=== PATIENT | female | born 1940 ===

== ENCOUNTER 2021-02-10 07:52 | Outpatient (REF) | payer OTHER, SELFPAY ==
[2021-02-10 10:46] LABS: MANUAL DIFF FLAG NO
[2021-02-10 11:03] LABS: Basophils Percent Auto 0.4 % (0-2); Eosinophils Absolute Auto 0.2 X10*3/uL (0.0-0.4); Eosinophils Percent Auto 2.8 % (0-4); Hematocrit 40.6 % (37-47); Hemoglobin 13.4 g/dl (12.0-16.0); Imm Gran Abs Auto 0.02 X10*3/uL (0.00-0.03); Imm Gran Pct Auto 0.4 % (0.0-0.4); Lymphocytes Absolute Auto 1.2 X10*3/uL (1.2-4.9); Lymphocytes Percent Auto 22.4 % (20-40); Mean Corpuscular Hemoglobin 31.5 pg (27.0-33.0); Mean Corpuscular Volume 95.3 fL (80-98); Mean Platelet Volume 10.7 fL (9.4-12.3); Monocytes Absolute Auto 0.5 X10*3/uL (0.1-1.2); Neutrophils Absolute Auto 3.5 X10*3/uL (2.0-8.3); Platelet Count 194 X10*3/uL (160-400); Red Blood Count 4.26 X10*6/uL (4.20-5.50); Red Cell Distribution Width 12.3 % (11.0-16.0); White Blood Count 5.3 X10*3/uL (4.8-10.8)
[2021-02-10 11:19] LABS: Digoxin 1.1 ng/mL (0.8-2.0)
[2021-02-10 11:23] LABS: Alanine Aminotransferase 17 U/L (0-31); Albumin Level 4.5 g/dL (3.5-5.0); Alkaline Phosphatase 65 U/L (39-117); Anion Gap 12 (12-20); Aspartate Amino Transferase 18 U/L (5-31); Bilirubin Total 0.4 mg/dL (0.0-1.0); Blood Urea Nitrogen 15 mg/dL (9-16); Calcium 8.9 mg/dL (8.4-10.2); Carbon Dioxide 30 mmol/L (22-29); Chloride 102 mmol/L (96-108); Cholesterol 183 mg/dL; Estimated Glomerular Filt Rate 53; Glucose Fasting 91 mg/dL (60-99); HDL Cholesterol 55 mg/dL; LDL Cholesterol Calculated 105 mg/dl; Potassium 4.5 mmol/L (3.3-5.1); Sodium 139 mmol/L (135-145); Total Protein 7.2 g/dL (6.5-8.0); Triglycerides 118 mg/dL
[2021-02-10 11:24] LABS: TSH reflex Free T4 3.36 uIU/mL (0.32-4.0)
== END 2021-02-10 07:53 | disposition home or self-care (01) ==
LOC: HO.WFDLDS 07:52
PROVIDERS: Visit Provider Family Medicine
DX: Z00.00 Encounter for general adult medical examination without abnormal findings (principal); I47.1 Supraventricular tachycardia
CPT/HCPCS: 36415; 80053; 80061; 80162; 84443; 85025

== ENCOUNTER 2021-06-30 08:50 | Outpatient (REF) | payer OTHER, SELFPAY ==
--- NOTE | ~2021-06-30 | US_ITS ---
EXAMINATION: US ABDOMEN LIMITED CLINICAL INFORMATION: Right upper quadrant pain. COMPARISON: None TECHNIQUE: Real-time imaging of the right upper quadrant abdominal viscera. FINDINGS: PANCREAS: Normal. LIVER: The liver is normal in size. The liver contour is normal. No focal hepatic lesion. There is no intrahepatic biliary duct dilatation seen. GALLBLADDER: Normal. The gallbladder is physiologically distended without evidence of stones, sludge, polyps, wall thickening or pericholecystic fluid. COMMON BILE DUCT: Normal in caliber measuring 0.41 cm in diameter. RIGHT KIDNEY: Normal. No hydronephrosis. No renal calculi or focal parenchymal lesions. The kidney measures 9.6 cm in maximum dimension. FREE FLUID: None. US/US abdomen limited IMPRESSION: No significant right upper quadrant abnormality appreciated.
== END 2021-06-30 08:51 | disposition home or self-care (01) ==
LOC: HO.US 08:50
PROVIDERS: PCP Family Medicine; Visit Provider Family Medicine
DX: R10.11 Right upper quadrant pain (principal)
CPT/HCPCS: 76705

== ENCOUNTER 2022-03-01 07:55 | Outpatient (REF) | payer OTHER, SELFPAY ==
[2022-03-01 11:26] LABS: MANUAL DIFF FLAG NO
[2022-03-01 11:36] LABS: Basophils Percent Auto 0.2 % (0-2); Eosinophils Absolute Auto 0.2 X10*3/uL (0.0-0.4); Eosinophils Percent Auto 3.4 % (0-4); Hematocrit 42.2 % (37.0-47.0); Hemoglobin 13.9 g/dl (12.0-16.0); Imm Gran Abs Auto 0.03 X10*3/uL (0.00-0.03); Imm Gran Pct Auto 0.6 % (0.0-0.4); Lymphocytes Absolute Auto 1.4 X10*3/uL (1.2-4.9); Lymphocytes Percent Auto 25.3 % (20-40); Mean Corpuscular HGB Conc 32.9 g/dl (31.0-35.0); Mean Corpuscular Hemoglobin 31.1 pg (27.0-33.0); Mean Corpuscular Volume 94.4 fL (80.0-98.0); Mean Platelet Volume 10.5 fL (9.4-12.3); Monocytes Absolute Auto 0.5 X10*3/uL (0.1-1.2); Monocytes Percent Auto 9.7 % (2-11); Neutrophils Absolute Auto 3.3 x10*3/uL (2.0-8.3); Neutrophils Percent Auto 60.8 % (45-73); Platelet Count 202 X10*3/uL (160-400); Red Blood Count 4.47 X10*6/uL (4.20-5.50); Red Cell Distribution Width 12.2 % (11.0-16.0); White Blood Count 5.4 X10*3/uL (4.8-10.8)
[2022-03-01 12:05] LABS: Digoxin 1.6 ng/mL (0.8-2.0)
[2022-03-01 12:28] LABS: Alanine Aminotransferase 17 U/L (0-31); Albumin Level 4.4 g/dL (3.5-5.0); Alkaline Phosphatase 70 U/L (39-117); Anion Gap 11 (12-20); Aspartate Amino Transferase 20 U/L (5-31); Bilirubin Total 0.7 mg/dL (0.0-1.0); Blood Urea Nitrogen 16 mg/dL (9-16); Calcium 9.5 mg/dL (8.4-10.2); Carbon Dioxide 29 mmol/L (22-29); Chloride 104 mmol/L (96-108); Cholesterol 204 mg/dL; Estimated Glomerular Filt Rate 51; Glucose Fasting 94 mg/dL (60-99); HDL Cholesterol 50 mg/dL; LDL Cholesterol Calculated 132 mg/dl; Potassium 4.1 mmol/L (3.3-5.1); Sodium 140 mmol/L (135-145); Total Protein 7.3 g/dL (6.5-8.0); Triglycerides 114 mg/dL
[2022-03-01 12:30] LABS: TSH reflex Free T4 4.23 uIU/mL (0.32-4.0)
[2022-03-01 13:17] LABS: Free T4 (Free Thyroxine) 0.94 ng/dL (0.71-1.85)
[2022-03-01 14:54] LABS: Appearance Urine CLEAR; Color Urine YELLOW; Glucose Urine UA NEG (NEG); Leukocyte Esterase Urine 3+ (NEG); Nitrite Urine NEG (NEG); Specific Gravity - Urine 1.015 (1.005-1.025); Urine Blood TRACE (NEG); Urine Ketones NEG (NEG); Urine Protein NEG (NEG-TRACE)
[2022-03-01 15:07] LABS: Squamous Epithelial Cell Urine 2+ /LPF
[2022-03-01 15:08] LABS: Renal Epithelial Cells Urine 2+ /LPF
[2022-03-01 15:09] LABS: Bacteria Urine TRACE /LPF; RBC Urine 0-2 /HPF (0)
== END 2022-03-01 07:56 | disposition home or self-care (01) ==
LOC: HO.WFDLDS 07:55
PROVIDERS: Visit Provider Family Medicine
DX: Z00.00 Encounter for general adult medical examination without abnormal findings (principal); I47.1 Supraventricular tachycardia
CPT/HCPCS: 36415; 80053; 80061; 80162; 81001; 84439; 84443; 85025

== ENCOUNTER 2022-07-04 07:28 | Outpatient (REF) | payer OTHER, SELFPAY ==
[2022-07-04 10:43] LABS: Cholesterol 191 mg/dL; HDL Cholesterol 52 mg/dL; LDL Cholesterol Calculated 115 mg/dl; Triglycerides 120 mg/dL
[2022-07-04 10:58] LABS: Appearance Urine Clear; Color Urine Yellow; Glucose Urine UA Negative (Negative); Leukocyte Esterase Urine Large (3+) (Negative); Nitrite Urine Negative (Negative); PH 7.5 (5.0-8.0); Urine Blood Negative (Negative); Urine Ketones Negative (Negative); Urine Protein Negative (Neg-Trace)
[2022-07-04 11:06] LABS: Bacteria Urine None Seen (None Seen); Hyaline Casts Urine 0-2 /LPF (0-2); RBC Urine 0-2 /HPF (0-2); Squamous Epithelial Cell Urine 0-2 /HPF (0-2); UACC Culture Trigger YES
== END 2022-07-04 07:29 | disposition home or self-care (01) ==
LOC: HO.WFDLDS 07:28
PROVIDERS: Visit Provider Family Medicine
DX: R82.71 Bacteriuria (principal)
CPT/HCPCS: 36415; 80061; 81001; 81003; 87086

== ENCOUNTER 2022-07-19 | Outpatient (REF) | payer OTHER, SELFPAY ==
[2022-07-20 12:46] LABS: Appearance Urine Cloudy; Color Urine Yellow; Glucose Urine UA Negative (Negative); Leukocyte Esterase Urine Large (3+) (Negative); Nitrite Urine Negative (Negative); PH 5.5 (5.0-9.0); Urine Blood Trace (Negative); Urine Ketones Negative (Negative); Urine Protein Negative (Neg-Trace)
[2022-07-20 12:49] LABS: Bacteria Urine 1+ (None Seen); Hyaline Casts Urine 0-2 /LPF (0-2); RBC Urine 0-2 /HPF (0-2); UACC Culture Trigger YES; WBC Urine >50 /HPF (0-5)
== END 2022-07-19 00:01 | disposition home or self-care (01) ==
LOC: HO.LNP
PROVIDERS: Visit Provider Family Medicine
DX: R82.71 Bacteriuria (principal)
CPT/HCPCS: 81001; 81003; 87086

== ENCOUNTER 2022-08-15 12:42 | Outpatient (REF) | payer OTHER, SELFPAY ==
[2022-08-15 14:52] LABS: Alanine Aminotransferase 13 U/L (0-31); Albumin Level 4.5 g/dL (3.5-5.0); Alkaline Phosphatase 72 U/L (39-117); Anion Gap 13 (12-20); Aspartate Amino Transferase 19 U/L (5-31); Bilirubin Total 0.5 mg/dL (0.0-1.0); Blood Urea Nitrogen 17 mg/dL (9-16); Calcium 9.2 mg/dL (8.4-10.2); Carbon Dioxide 26 mmol/L (22-29); Chloride 103 mmol/L (96-108); Estimated Glomerular Filt Rate 52; Glucose Random 83 mg/dL (60-115); Potassium 4.4 mmol/L (3.3-5.1); Sodium 138 mmol/L (135-145); Total Protein 7.4 g/dL (6.5-8.0)
[2022-08-15 15:14] LABS: Free T4 (Free Thyroxine) 1.02 ng/dL (0.71-1.85); Thyroid Stimulating Hormone 3.02 uIU/mL (0.32-4.0)
[2022-08-16 16:17] LABS: Triiodothyronine T3 Total 132 ng/dL (76-181)
== END 2022-08-15 12:43 | disposition home or self-care (01) ==
LOC: HO.WFDLDS 12:42
PROVIDERS: Visit Provider Family Medicine
DX: E03.9 Hypothyroidism, unspecified (principal); I10 Essential (primary) hypertension; R79.89 Other specified abnormal findings of blood chemistry
CPT/HCPCS: 36415; 80053; 84439; 84443; 84480

== ENCOUNTER 2022-12-05 08:10 | Outpatient (REF) | payer SELFPAY ==
[2022-12-05 12:39] LABS: Alanine Aminotransferase 10 U/L (0-31); Albumin Level 4.3 g/dL (3.5-5.0); Alkaline Phosphatase 75 U/L (39-117); Anion Gap 13 (12-20); Aspartate Amino Transferase 18 U/L (5-31); Bilirubin Total 0.8 mg/dL (0.0-1.0); Blood Urea Nitrogen 17 mg/dL (9-16); Carbon Dioxide 26 mmol/L (22-29); Chloride 104 mmol/L (96-108); Cholesterol 189 mg/dL; Estimated Glomerular Filt Rate 46; Glucose Random 89 mg/dL (60-115); HDL Cholesterol 48 mg/dL; LDL Cholesterol Calculated 119 mg/dl; Potassium 3.9 mmol/L (3.3-5.1); Sodium 139 mmol/L (135-145); Triglycerides 114 mg/dL
== END 2022-12-05 08:11 | disposition home or self-care (01) ==
LOC: HO.WFDLDS 08:10
PROVIDERS: Visit Provider Surgery
DX: I65.29 Occlusion and stenosis of unspecified carotid artery (principal)
CPT/HCPCS: 36415; 80053; 80061

== ENCOUNTER 2023-07-19 08:20 | Outpatient (REF) | payer MEDICARE, SELFPAY ==
[2023-07-19 11:26] LABS: MANUAL DIFF FLAG NO
[2023-07-19 11:37] LABS: Basophils Percent Auto 0.5 % (0-2); Eosinophils Absolute Auto 0.2 X10*3/uL (0.0-0.4); Eosinophils Percent Auto 3.9 % (0-4); Hematocrit 38.8 % (37.0-47.0); Imm Gran Abs Auto 0.02 X10*3/uL (0.00-0.03); Imm Gran Pct Auto 0.4 % (0.0-0.4); Lymphocytes Absolute Auto 1.1 X10*3/uL (1.2-4.9); Lymphocytes Percent Auto 19.6 % (20-40); Mean Corpuscular HGB Conc 33.5 g/dl (31.0-35.0); Mean Corpuscular Hemoglobin 31.7 pg (27.0-33.0); Mean Corpuscular Volume 94.6 fL (80.0-98.0); Mean Platelet Volume 10.8 fL (9.4-12.3); Monocytes Absolute Auto 0.5 X10*3/uL (0.1-1.2); Monocytes Percent Auto 9.1 % (2-11); Neutrophils Absolute Auto 3.8 x10*3/uL (2.0-8.3); Neutrophils Percent Auto 66.5 % (45-73); Platelet Count 195 X10*3/uL (160-400); Red Cell Distribution Width 12.5 % (11.0-16.0); White Blood Count 5.7 X10*3/uL (4.8-10.8)
[2023-07-19 12:20] LABS: Alanine Aminotransferase 17 U/L (0-31); Albumin Level 4.4 g/dL (3.5-5.0); Alkaline Phosphatase 66 U/L (39-117); Anion Gap 11 (12-20); Aspartate Amino Transferase 20 U/L (5-31); Bilirubin Total 0.7 mg/dL (0.0-1.0); Blood Urea Nitrogen 19 mg/dL (9-16); Calcium 9.5 mg/dL (8.4-10.2); Carbon Dioxide 27 mmol/L (22-29); Chloride 106 mmol/L (96-108); Cholesterol 152 mg/dL (<200); Estimated Glomerular Filt Rate 44; Glucose Fasting 92 mg/dL (60-99); HDL Cholesterol 48 mg/dL (>40); LDL Cholesterol Calculated 84 mg/dL (<100); Potassium 4.1 mmol/L (3.3-5.1); Sodium 140 mmol/L (135-145); Total Protein 7.5 g/dL (6.5-8.0); Triglycerides 102 mg/dL (<150)
== END 2023-07-19 08:21 | disposition home or self-care (01) ==
LOC: HO.WFDLDS 08:20
PROVIDERS: Visit Provider Family Medicine
DX: Z00.00 Encounter for general adult medical examination without abnormal findings (principal); I10 Essential (primary) hypertension; Z86.73 Personal history of transient ischemic attack (TIA), and cerebral infarction without residual deficits
CPT/HCPCS: 36415; 80053; 80061; 85025

== ENCOUNTER 2023-07-24 13:57 | Outpatient (AMB) | payer MEDICARE, SELFPAY ==
--- NOTE | 2023-07-24 13:59 | MHC.PC.OV ---
Vital Signs 07/24/23 14:02 Height 5 ft 6 in Weight 114 lb BMI 18.4 BP 152/90 H Blood Pressure Location Lt brachial Position Sitting Respiration 14 Pulse 72 Pulse Source Pulse Oximeter Temp 98.8 F Temp Source Oral Pulse Oximetry (%) 99 Oxygen Delivery Method Room Air Intake Visit Reasons: cataract Dr. Marcelo/ 07-29-23 Intake Note: Patient is having cataract surgery on 07/29/23. 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 Accompanied by: Self / Same As Patient Allergies clindamycin [From Cleocin] Allergy (Verified 07/24/23 14:08) colitis hydromorphone [From Dilaudid] Allergy (Verified 07/24/23 14:08) apnea midazolam [From Versed] Allergy (Verified 07/24/23 14:08) rapid pulse Penicillins Allergy (Verified 07/24/23 14:08) Hives Sulfa (Sulfonamide Antibiotics) Allergy (Verified 07/24/23 14:08) rash NSAIDS (Non-Steroidal Anti-Inflamma Adverse Reaction (Verified 07/24/23 14:08) gi issues BACTRIM Adverse Reaction (Severe, Uncoded 02/21/23 09:59) Rash, ABD PAIN Tobacco use date assessed: 01/17/23 Fall risk assessment: No Falls in past year Last assessed Fall Risk: 07/24/23 Dental Screening Dental Screen Date: 07/24/23 Did you have a dental visit in the last 12 months?: No Did you have a dental problem in the last 6 months where you did not have access to dental care?: No Was dental information given to patient?: Patient has dentist HPI cataract Dr. Marcelo/ 07-29-23 HPI Details Patient presents for preoperative clearance prior to Cataract surgery Procedure: Cataract Surgery Date: 07/29/23 Surgeon: Dr. Marcelo Anesthesia: Local Cardiac Hx: SVT, TIA. Dyspnea on Exertion Pulmonary Hx: Left upper lobe resection. Prior Surgical complications: None Prior Anesthesia Complications: None Coag Issues: On aspirin. Otherwise none Functional [place]: Dyspnea on exertion when going up the stairs. [facility] Surgical History (Updated 08/16/21 @ 10:48 by [employer]) History of hip replacement (~2009) Social History (Updated 08/16/21 @ 10:49 by Rollerscoot) Housing: Condominium Patient Tobacco Use Status: Never used Tobacco e-Cigarette/Vaping Use: Never Used Second Hand Smoke Exposure: No service: No Current occupational status: retired Current occupational exposures/hazards: No Cognitive needs: No Hearing needs: No Vision needs: No Questionnaire Thrive Questionnaire Date Thrive assessed: 08/16/21 MARIANN-7 AMB Questionnaire MARIANN-7 Date MARIANN - 7 assessed: 07/19/22 Source: Developed by Drs. Db Eric, Winifred Cardoso, Allan Talamantes and colleagues, with an educational astrid from [employer]. Review of Systems Const Denies chills, Denies fatigue, Denies fever(s), Denies headache(s) and Denies weakness ENT Denies dizziness and Denies headache(s) Card Denies chest pain, Denies lightheadedness, Denies dyspnea and Denies other (Palpitations) Resp Denies cough, Denies dyspnea, Denies wheezing and Denies other ( shortness of breath) Musc Denies numbness and Denies tingling Neuro Denies dizziness, Denies headache(s), Denies numbness, Denies tingling, Denies paresthesias and Denies weakness Psych Denies anxiety and Denies depression Endo Denies fatigue Aller/Immun Denies wheezing Physical exam (Primary Care) Vital Signs: Last Vital Signs Temp 98.8 F 07/24/23 14:02 Pulse 72 07/24/23 14:02 Resp 14 07/24/23 14:02 BP 152/90 H 07/24/23 14:02 Pulse Ox 99 07/24/23 14:02 Oxygen Delivery Method Room Air 07/24/23 14:02 BMI result Body Mass Index 18.4 Tobacco/Smoking Status: Tobacco use Status Tobacco use date assessed 01/17/23 07/24/23 14:09 Patient Tobacco Use Status Never used Tobacco 07/24/23 14:09 e-Cigarette/Vaping Use Never Used 07/24/23 14:09 Thrive Assessment: Date of Thrive Assessment Date Thrive assessed 08/16/21 07/24/23 14:09 Const General: no acute distress and well developed Nutritional Appearance: well nourished Orientation/consciousness: patient oriented x3 HENMT Head: Yes normocephalic and Yes atraumatic Eyes General: appearance normal, both eyes and all related structures Pupils: Equal, round and reactive pupils present EOM: EOMs intact bilaterally Resp Effort & Inspection: normal respiratory effort Auscultation: clear to auscultation bilaterally Cardio Rate: regular rate Rhythm: regular rhythm Heart sounds: S1 normal heart sound present, S2 normal heart sound present, no gallops, no murmurs and no rubs Bruits: carotid bruit (Faint L carotid bruit) Neuro General: patient oriented x3 and gait normal Cranial nerves: Yes Equal, round and reactive pupils present Psych Affect: normal affect Assessment and Plan Assessment & Plan (1) Preop cardiovascular exam: Code(s): Z01.810 - Encounter for preprocedural cardiovascular examination Plan: 82-year-old female presents for preoperative clearance prior to cataract surgery History of SVT and on digoxin. History of hypertension. Blood pressure not fully controlled today. No diagnosis of coronary artery disease. She does have a history of TIA however. She also notes some shortness of breath with maximal exertion such as going up a flight of stairs. History of left upper lobe of lung resection. Now stable. No prior surgical or anesthesia complications and no coagulopathies however she is on aspirin. Moderately poor functional reserve and having some shortness of breath with maximal exertion. Currently unable to clear patient due to hypertension which is not fully controlled. Will add amlodipine. She will return in 2 days to follow-up blood pressure. (2) Essential hypertension: Code(s): I10 - Essential (primary) hypertension Plan: Poorly controlled blood pressure in office. Patient notes that her blood pressures are better controlled at home but they seem to fluctuate to significantly elevated ranges. Had used metoprolol but this was causing significantly low heart rates. She cannot take losartan due to a rash. Did not tolerate hydrochlorothiazide. Will try amlodipine Orders: Orders AMB EKG-In Office Today I10 - Essential (primary) hypertension, Z01.810 - Encounter for preprocedural cardiovascular examination Medications: New lisinopril 20 mg PO DAILY 30 days 30 tabs 2RF amlodipine 5 mg PO DAILY 30 tabs 2RF 30 days Coding Level of Care Code Est Pt Level 3 (73829) Diagnoses Preop cardiovascular exam Z01.810 Essential hypertension I10
[2023-07-24 14:02] VITALS: BP 152/90; PULSE 72; RESP 14; TEMP 37.1; O2SAT 99; BMI 18.4
== END 2023-07-24 14:59 | disposition home or self-care (01) ==
PROVIDERS: PCP Family Medicine; Visit Provider Family Medicine
DX: Z01.810 Encounter for preprocedural cardiovascular examination (principal); I10 Essential (primary) hypertension
CPT/HCPCS: 99213

== ENCOUNTER 2023-07-26 11:09 | Outpatient (AMB) | payer MEDICARE, SELFPAY ==
--- NOTE | 2023-07-26 11:20 | MHC.PC.OV ---
Vital Signs 07/26/23 11:21 Height 5 ft 6 in Weight 114 lb BMI 18.4 BP 128/80 Blood Pressure Location Lt brachial Position Sitting Pulse 65 Pulse Source Pulse Oximeter Pulse Oximetry (%) 98 Oxygen Delivery Method Room Air Intake Visit Reasons: PreOp Cataracts Intake Note: Patient is here for Preop and follow up on hypertension. Allergies clindamycin [From Cleocin] Allergy (Verified 07/26/23 11:25) colitis hydromorphone [From Dilaudid] Allergy (Verified 07/26/23 11:25) apnea midazolam [From Versed] Allergy (Verified 07/26/23 11:25) rapid pulse Penicillins Allergy (Verified 07/26/23 11:25) Hives Sulfa (Sulfonamide Antibiotics) Allergy (Verified 07/26/23 11:25) rash NSAIDS (Non-Steroidal Anti-Inflamma Adverse Reaction (Verified 07/26/23 11:25) gi issues BACTRIM Adverse Reaction (Severe, Uncoded 07/26/23 11:25) Rash, ABD PAIN Medication List - Last Reconciled 07/26/23 by Warren Gaffney MD amlodipine 5 mg PO DAILY 30 days aspirin 81 mg PO DAILY 90 days atorvastatin 10 mg PO DAILY digoxin 125 mcg PO DAILY 90 days estradiol 0.01%(0.1mg/gram) grams vaginal L.acidoph, paracasei,B. lactis (Digestive Advantage Advanced Probiotic) cells PO DAILY metoprolol tartrate 12.5 mg (1/2 x 25 mg) PO BID 30 days triamcinolone acetonide 0.5% 1 appl topical BID 14 days Tobacco use date assessed: 01/17/23 Fall risk assessment: No Falls in past year Last assessed Fall Risk: 07/26/23 HPI PreOp Cataracts HPI Details Patient presents for preoperative clearance prior to Cataract surgery Procedure: Cataract Surgery Date: 07/29/23 Surgeon: Dr. Marcelo Anesthesia: Local Cardiac Hx: SVT, TIA. Dyspnea on Exertion Pulmonary Hx: Left upper lobe resection. Prior Surgical complications: None Prior Anesthesia Complications: None Coag Issues: On aspirin. Otherwise none Functional [place]: Dyspnea on exertion when going up the stairs. Blood pressure today 128/80. She is on metoprolol 12.5mg b.i.d. and amlodipine 5mg daily. She brought her BP log from home and has been well controlled on amlodipine and metoprolol. [facility] Surgical History History of hip replacement (~2009) Social History Housing: Condominium Patient Tobacco Use Status: Never used Tobacco e-Cigarette/Vaping Use: Never Used Second Hand Smoke Exposure: No service: No Current occupational status: retired Current occupational exposures/hazards: No Cognitive needs: No Hearing needs: No Vision needs: No Questionnaire Thrive Questionnaire Date Thrive assessed: 08/16/21 MARIANN-7 AMB Questionnaire MARIANN-7 Date MARIANN - 7 assessed: 07/19/22 Source: Developed by Drs. Db Eric, Winifred Cardoso, Allan Talamantes and colleagues, with an educational astrid from [employer]. Review of Systems Const Denies chills, Denies fatigue, Denies fever(s), Denies headache(s) and Denies weakness ENT Denies dizziness and Denies headache(s) Card Denies chest pain, Denies lightheadedness, Denies dyspnea and Denies other (Palpitations) Resp Denies cough, Denies dyspnea, Denies wheezing and Denies other ( shortness of breath) Musc Denies numbness and Denies tingling Neuro Denies dizziness, Denies headache(s), Denies numbness, Denies tingling, Denies paresthesias and Denies weakness Psych Denies anxiety and Denies depression Endo Denies fatigue Aller/Immun Denies wheezing Physical exam (Primary Care) Vital Signs: Last Vital Signs Pulse 65 07/26/23 11:21 BP 128/80 07/26/23 11:21 Pulse Ox 98 07/26/23 11:21 Oxygen Delivery Method Room Air 07/26/23 11:21 BMI result Body Mass Index 18.4 Tobacco/Smoking Status: Tobacco use Status Tobacco use date assessed 01/17/23 07/26/23 11:27 Patient Tobacco Use Status Never used Tobacco 07/26/23 11:27 e-Cigarette/Vaping Use Never Used 07/26/23 11:27 Thrive Assessment: Date of Thrive Assessment Date Thrive assessed 08/16/21 07/26/23 11:27 Const General: no acute distress and well developed Nutritional Appearance: well nourished Orientation/consciousness: patient oriented x3 HENMT Head: Yes normocephalic and Yes atraumatic Eyes General: appearance normal, both eyes and all related structures Pupils: Equal, round and reactive pupils present EOM: EOMs intact bilaterally Resp Effort & Inspection: normal respiratory effort Auscultation: clear to auscultation bilaterally Cardio Rate: regular rate Rhythm: regular rhythm Heart sounds: S1 normal heart sound present, S2 normal heart sound present, no gallops, no murmurs and no rubs Neuro General: patient oriented x3 and gait normal Cranial nerves: Yes Equal, round and reactive pupils present Psych Affect: normal affect Assessment and Plan Assessment & Plan (1) Preop cardiovascular exam: Code(s): Z01.810 - Encounter for preprocedural cardiovascular examination Plan: 82-year-old female presents for preoperative clearance prior to cataract surgery History of SVT and on digoxin. History of hypertension. Blood pressure not fully controlled at last visit. Added amlodipine to her BP regimen and now controlled. No diagnosis of coronary artery disease. She does have a history of TIA however. She also notes some shortness of breath with maximal exertion such as going up a flight of stairs. History of left upper lobe of lung resection. Now stable. No prior surgical or anesthesia complications and no coagulopathies however she is on aspirin. Moderately poor functional reserve and having some shortness of breath with maximal exertion. Intermediate risk patient for low risk procedure. Patient is optimized. no contraindications to proceeding with proposed procedure. (2) Essential hypertension: Code(s): I10 - Essential (primary) hypertension Plan: Now controlled on metoprolol and addition of amlodipine. Continue current medication regimen Medications: Discontinued lisinopril Discontinued Reason: Patient no longer taking 20 mg PO DAILY 30 tabs 2RF 30 days Coding Level of Care Code Est Pt Level 3 (71291) Diagnoses Preop cardiovascular exam Z01.810 Essential hypertension I10
[2023-07-26 11:21] VITALS: BP 128/80; PULSE 65; O2SAT 98; BMI 18.4
== END 2023-07-26 12:24 | disposition home or self-care (01) ==
PROVIDERS: PCP Family Medicine; Visit Provider Family Medicine
DX: Z01.810 Encounter for preprocedural cardiovascular examination (principal); I10 Essential (primary) hypertension
CPT/HCPCS: 99213

== ENCOUNTER 2023-08-26 11:28 | Outpatient (AMB) | payer MEDICARE, SELFPAY ==
[2023-08-26 11:37] VITALS: BP 126/64; PULSE 68; O2SAT 98; BMI 17.8
--- NOTE | 2023-08-26 11:37 | A.OFFPC_ITS ---
Vital Signs 08/26/23 11:37 Height 5 ft 6 in Weight 110 lb BMI 17.8 BP 126/64 Blood Pressure Location Lt brachial Position Sitting Pulse 68 Pulse Source Pulse Oximeter Pulse Oximetry (%) 98 Oxygen Delivery Method Room Air Intake Visit Reasons: f/u hypertension Intake Note: Patient is here for follow up on hypertension, and medication review, and cardiology referral, can't see until November. Allergies clindamycin [From Cleocin] Allergy (Verified 08/26/23 11:40) colitis hydromorphone [From Dilaudid] Allergy (Verified 08/26/23 11:40) apnea midazolam [From Versed] Allergy (Verified 08/26/23 11:40) rapid pulse Penicillins Allergy (Verified 08/26/23 11:40) Hives Sulfa (Sulfonamide Antibiotics) Allergy (Verified 08/26/23 11:40) rash NSAIDS (Non-Steroidal Anti-Inflamma Adverse Reaction (Verified 08/26/23 11:40) gi issues BACTRIM Adverse Reaction (Severe, Uncoded 08/26/23 11:40) Rash, ABD PAIN Medication List - Last Reconciled 08/26/23 by Warren Gaffney MD amlodipine 5 mg PO DAILY 30 days aspirin 81 mg PO DAILY 90 days atorvastatin 10 mg PO DAILY digoxin 125 mcg PO DAILY 90 days estradiol 0.01%(0.1mg/gram) grams vaginal L.acidoph, paracasei,B. lactis (Digestive Advantage Advanced Probiotic) cells PO DAILY metoprolol tartrate 12.5 mg (1/2 x 25 mg) PO BID 30 days triamcinolone acetonide 0.5% 1 appl topical BID 14 days Tobacco use date assessed: 08/26/23 Fall risk assessment: No Falls in past year Last assessed Fall Risk: 08/26/23 HPI f/u hypertension HPI Details 83 y/o female presents to f/u hypertensi on. Blood pressure today 126/64. She is on amlodipine 5mg and metoprolol 12.5 mg b.i.d. She reports she is frustrated about her medications and feels like her quality of life has been impacted significantly due to them. She reports shortness of breath and fatigue. She also reports she has been unintentionally losing weight. She states she has an appt. with Cardiology in November. She does have a hx of smoking x40 years. Pt reports anxiety for years. PFSH Surgical History History of hip replacement (~2009) Social History Housing: Condominium Patient Tobacco Use Status: Never used Tobacco e-Cigarette/Vaping Use: Never Used Second Hand Smoke Exposure: No service: No Current occupational status: retired Current occupational exposures/hazards: No Cognitive needs: No Hearing needs: No Vision needs: No Questionnaire Thrive Questionnaire Date Thrive assessed: 08/16/21 MARIANN-7 AMB Questionnaire MARIANN-7 Date MARIANN - 7 assessed: 07/19/22 Source: Developed by Drs. Db Eric, Winifred Cardoso, Allan Talamantes and colleagues, with an educational astrid from [employer]. Review of Systems Const Reports fatigue, Denies headache(s) and Denies weakness ENT Denies dizziness and Denies headache(s) Card Reports dyspnea Resp Reports dyspnea and Denies wheezing Musc Denies numbness and Denies tingling Neuro Denies dizziness, Denies headache(s), Denies numbness, Denies tingling, Denies paresthesias and Denies weakness Psych Denies anxiety and Denies depression Endo Reports fatigue Aller/Immun Denies wheezing Physical exam (Primary Care) Vital Signs: Last Vital Signs Pulse 68 08/26/23 11:37 BP 126/64 08/26/23 11:37 Pulse Ox 98 08/26/23 11:37 Oxygen Delivery Method Room Air 08/26/23 11:37 BMI result Body Mass Index 17.8 Tobacco/Smoking Status: Tobacco use Status Tobacco use date assessed 08/26/23 08/26/23 11:41 Patient Tobacco Use Status Never used Tobacco 08/26/23 11:41 e-Cigarette/Vaping Use Never Used 08/26/23 11:41 Thrive Assessment: Date of Thrive Assessment Date Thrive assessed 08/16/21 08/26/23 11:41 Const General: no acute distress and well developed Nutritional Appearance: well nourished Orientation/consciousness: patient oriented x3 HENMT Head: Yes normocephalic and Yes atraumatic Eyes General: appearance normal, both eyes and all related structures Pupils: Equal, round and reactive pupils present EOM: EOMs intact bilaterally Resp Other: Mildly distant breath sounds Effort & Inspection: normal respiratory effort Auscultation: clear to auscultation bilaterally Cardio Rate: regular rate Rhythm: regular rhythm Heart sounds: S1 normal heart sound present, S2 normal heart sound present, no gallops, no murmurs and no rubs Neuro General: patient oriented x3 and gait normal Cranial nerves: Yes Equal, round and reactive pupils present Psych Affect: normal affect Assessment and Plan Assessment & Plan (1) Essential hypertension: Code(s): I10 - Essential (primary) hypertension Plan: Blood?pres sure?is?controlled?both?in?office?and?at?home?on?current?regimen.??Goal?for?emelyn ent?with?history?of?TIA is?less?than?130/80 Continue?current?medication?regimen Patient?gets?frustrated?with?current?r egimen?but?I?reassured?her?that?her?numbers?are?quite?good. (2) Shortness of breath: Code(s): R06.02 - Shortness of breath Plan: She?has?some?shortness?of?breath?with?going?up?stairs. No?chest?pain,?diaphoresis,?nausea. She?has?a?history?of?COPD also?history?of?lobectomy Shortness?of?breath?and?exercise?intolerance?likely?secondary?to?COPD. Referred?to?pulmonology (3) Fatigue: Code(s): R53.83 - Other fatigue Plan: As?above (4) Underweight: Code(s): R63.6 - Underweight Plan: Underweight?likely?secondary?to?COPD If?she?continues?to?lose?weight,?will discuss?supplementation?and?also?investigations?such?as?imaging. (5) Anxiety: Code(s): F41.9 - Anxiety disorder, unspecified Plan: Offered?referral?for?therapy?and?also?discuss?medication. Patient?refuses?bone (6) Hypercholesterolemia: Code(s): E78.00 - Pure hypercholesterolemia, unspecified Plan: Continue?atorvastatin?and?Zetia (7) COPD (chronic obstructive pulmonary disease): Code(s): J44.9 - Chronic obstructive pulmonary disease, unspecified Plan: As?above,?referred?to?pulmonary Orders: Referrals Pulmonary Medicine Referral J44.9 - Chronic obstructive pulmonary disease, unspecified Medications: Changed From ezetimibe 10 mg PO DAILY 30 tabs 2RF 30 days To ezetimibe 10 mg PO DAILY 90 tabs 2RF 90 days From ezetimibe 10 mg PO DAILY 30 tabs 2RF 30 days To ezetimibe 10 mg PO DAILY 90 tabs 2RF 90 days Coding Level of Care Code Est Pt Level 4 (96625) Diagnoses Essential hypertension I10 Shortness of breath R06.02 Fatigue R53.83 Underweight R63.6 Anxiety F41.9 Hypercholesterolemia E78.00 COPD (chronic obstructive pulmonary disease) J44.9
== END 2023-08-26 12:13 | disposition home or self-care (01) ==
PROVIDERS: PCP Family Medicine; Visit Provider Family Medicine
DX: I10 Essential (primary) hypertension (principal); R06.02 Shortness of breath; R53.83 Other fatigue; J44.9 Chronic obstructive pulmonary disease, unspecified; R63.6 Underweight; F41.9 Anxiety disorder, unspecified; E78.00 Pure hypercholesterolemia, unspecified
CPT/HCPCS: 99214

== ENCOUNTER 2023-09-02 10:51 | Outpatient (AMB) | payer MEDICARE, SELFPAY ==
[2023-09-02 11:12] VITALS: BP 124/62; PULSE 69; O2SAT 98; BMI 18.1
--- NOTE | 2023-09-02 11:12 | A.OFFVIS_ITS ---
Intake Vital Signs 3 09/02/23 11:12 Height 5 ft 6 in Weight 112 lb BMI 18.1 BP 124/62 Blood Pressure Location Lt brachial Position Sitting Pulse 69 Pulse Source Pulse Oximeter Pulse Oximetry (%) 98 Oxygen Delivery Method Room Air Intake Visit Reasons: Chronic obstructive pulmonary disease Authorization Nurse Required: No Sealing And Canceling Machine Operator: Sealing And Canceling Machine Operator offered & declined Accompanied by: Spouse Allergies clindamycin [From Cleocin] Allergy (Verified 09/02/23 11:21) colitis hydromorphone [From Dilaudid] Allergy (Verified 09/02/23 11:21) apnea midazolam [From Versed] Allergy (Verified 09/02/23 11:21) rapid pulse Penicillins Allergy (Verified 09/02/23 11:21) Hives Sulfa (Sulfonamide Antibiotics) Allergy (Verified 09/02/23 11:21) rash NSAIDS (Non-Steroidal Anti-Inflamma Adverse Reaction (Verified 09/02/23 11:21) gi issues BACTRIM Adverse Reaction (Severe, Uncoded 09/02/23 11:21) Rash, ABD PAIN Medication List - Last Reconciled 09/02/23 by Majo Warner LPN amlodipine 5 mg PO DAILY 30 days aspirin 81 mg PO DAILY 90 days digoxin 125 mcg PO DAILY 90 days estradiol 0.01%(0.1mg/gram) grams vaginal ezetimibe 10 mg PO DAILY 90 days L.acidoph, paracasei,B. lactis (Digestive Advantage Advanced Probiotic) cells PO DAILY metoprolol tartrate 12.5 mg (1/2 x 25 mg) PO BID 30 days triamcinolone acetonide 0.5% 1 appl topical BID 14 days HPI Chronic obstructive pulmonary disease 2 HPI0 Details Tika is a pleasant, former smoker, with 40 pack year history, quit 2006, with under lying history of lung cancer in 2010 s/p left upper lobectomy, h/o SVT maintained on digoxin and TIA 2021. She was followed for 5 years under the care of oncology in [place], denies any chemo/radiation and has been is remission since. She was referred by PCP for intermittent dyspnea on exertion. She noticed symptoms a little over a month ago and states dyspnea occurs mostly with moderate exertion such as stairs. She denies family history of respiratory conditions. 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 Of note, she reports having imaging performed while admitted with TIA last year at [facility], reports not available today. She has not been under the care of cardiology. Echo from 2021, below. [facility] Surgical History (Updated 09/02/23 @ 11:30 by Majo Warner LPN) History of lobectomy of lung History of hip replacement (~2009) Social History (Updated 09/02/23 @ 11:27 by Majo Warner LPN) [facility] Patient Tobacco Use Status: Former Tobacco user Tobacco use type: Cigarette Cigarette Packs Per Day: 1 Years Smoked: 40 e-Cigarette/Vaping Use: Never Used Second Hand Smoke Exposure: No service: No Current occupational status: retired Current occupational exposures/hazards: No Cognitive needs: No Hearing needs: No Vision needs: No Review of Systems Const Denies chills, Denies excessive sweating, Denies fever(s), Denies headache(s) and Denies night sweats Eyes Denies dry eyes, Denies irritation and Denies itchy eyes ENT Reports Normal hearing present, Denies headache(s), Denies nasal congestion, Denies nasal discharge, Denies post nasal drip and Denies sore throat Card Denies chest pain, Denies chest pain at rest, Denies chest pain with activity, Denies claudication, Denies leg edema, Denies orthopnea and Denies paroxysmal nocturnal dyspnea Resp Denies chest congestion, Denies cough, Denies excessive phlegm production, Denies pain on inspiration, Denies pain with cough, Denies stridor and Denies wheezing Musc Denies myalgias Neuro Reports Normal hearing present and Denies headache(s) Endo Denies excessive sweating Santana/Lymph Denies lymphadenopathy Aller/Immun Denies itchy eyes, Denies seasonal rhinorrhea and Denies wheezing Physical Exam Vital Signs: Last Vital Signs Pulse 69 09/02/23 11:12 BP 124/62 09/02/23 11:12 Pulse Ox 98 09/02/23 11:12 Oxygen Delivery Method Room Air 09/02/23 11:12 BMI result Body Mass Index 18.1 Const General: cooperative, healthy appearing, comfortable, no acute distress, well developed and alert Orientation/consciousness: patient oriented x3 Limitations: no limitations HEENT Head: Yes normal to inspection, Yes normocephalic and Yes atraumatic Ears: hearing grossly normal bilaterally and external ears normal Eyes General: appearance normal, both eyes and all related structures Eyelids: Yes eyelids normal Sclerae: sclerae normal EOM: EOMs intact bilaterally Neck Neck: Yes normal visual inspection and Yes no lymphadenopathy Lymphatic: no lymphadenopathy noted Chest Chest palpation & inspection: normal inspection of the chest Resp Effort & Inspection: normal respiratory effort, able to speak in complete sentences, no audible wheezes, no cough, no stridor, not tachypneic, no tripod positioning and no use of accessory muscles Auscultation: clear to auscultation bilaterally Cardio Jugular venous distension: no JVD Rate: regular rate Rhythm: regular rhythm Skin Other: warm, dry General skin exam: no rashes or lesions noted Neuro General: patient oriented x3 Cranial nerves: Yes Normal hearing present Cognition (Neuro): normal cognition Gait exam (Neuro): Normal gait present Extrem General: Yes normal to inspection, Yes capillary refill normal, Yes no clubbing, cyanosis or edema and Yes no pedal edema Psych Appearance: grossly normal and well kempt Speech and movement: Normal speech and movement present and Clear speech present Affect: normal affect Attitude: cooperative Thought process: Normal thought process present Thought content: Normal thought content present Insight: Good insight present (Psych) Judgement: Good judgement present (Psych) Results Reviewed Results Reviewed: Assessment & Plan Assessment & Plan (1) COPD (chronic obstructive pulmonary disease): Code(s): J44.9 - Chronic obstructive pulmonary disease, unspecified (2) Shortness of breath: Code(s): R06.02 - Shortness of breath Plan Tika's symptoms are likely related to COPD, unclear severity. Will send for PFT to thoroughly evaluate. Discussed obtaining chest CT given her prior history of lung cancer but patient not interested at this time. Willing to obtain CXR. Order has been placed. Will have patient sign release for imaging performed while admitted for TIA last year. All questions were answered and patient is in agreement of plan. Will follow up in 4-6 weeks to review results. Orders: Orders 2 XR chest 2V 09/02/23 J44.9 - Chronic obstructive pulmonary disease, unspecified, R06.02 - Shortness of breath PFT pulmonary function test Today J44.9 - Chronic obstructive pulmonary disease, unspecified Coding Level of Care Code New Pt Level 4 (06389) Diagnoses COPD (chronic obstructive pulmonary disease) J44.9 Shortness of breath R06.02
== END 2023-09-02 11:57 | disposition home or self-care (01) ==
LOC: HO.HPSW 10:51
PROVIDERS: PCP Family Medicine; Referring Provider Family Medicine; Visit Provider Nurse Practitioner Family
DX: J44.9 Chronic obstructive pulmonary disease, unspecified (principal); R06.02 Shortness of breath
CPT/HCPCS: 99204

== ENCOUNTER → 2023-09-02 10:51 | Outpatient (BNVA) | payer MEDICARE, SELFPAY | PROVIDERS: PCP Family Medicine; Visit Provider Nurse Practitioner Family ==

== ENCOUNTER 2023-09-27 11:52 | Outpatient (REF) | payer MEDICARE, SELFPAY ==
--- NOTE | ~2023-09-27 | XR_ITS ---
EXAMINATION: XR CHEST CLINICAL INFORMATION: COPD. COMPARISON: None available. TECHNIQUE: Frontal and lateral views of the chest were obtained. FINDINGS: The heart, great vessels and mediastinum are normal. There is atherosclerotic calcification of the aortic knob. There is hyperinflation, with mildly increased retrosternal lucency. There is biapical pleural thickening, right greater than left. No infiltrate, effusion or pneumothorax is seen. There is no acute osseous abnormality. There is a moderate thoracolumbar levoscoliosis. XR/XR chest 2V IMPRESSION: 1. There is hyperinflation, consistent with COPD. 2. No focal infiltrate or congestive heart failure is seen.
--- NOTE | 2023-09-27 12:38 | PFT_ITS ---
Forced vital capacity 96%, FEV1 81%, FEV1/FVC ratio is 63. [id number] 53%, MVV 64%. Post bronchodilator therapy, there is significant improvement in FVC, but not in other flow volumes. Total lung capacity 94%. Residual volume 84%. Diffusion capacity 55%. CONCLUSION: There is evidence of [id number] degree of obstructive airway disorder. No significant response to bronchodilator therapy. Clinical correlation recommended. MD BETSEY Marti/LIZETTE / [phone]
== END 2023-09-27 11:53 | disposition home or self-care (01) ==
LOC: HO.RESP 11:52
PROVIDERS: PCP Family Medicine; Visit Provider Nurse Practitioner Family
DX: J44.9 Chronic obstructive pulmonary disease, unspecified (principal); R06.02 Shortness of breath
CPT/HCPCS: 71046; 94010; 94727; 94729

== ENCOUNTER → 2023-09-27 12:38 | Outpatient (BNV) | payer MEDICARE, SELFPAY | PROVIDERS: PCP Family Medicine; Visit Provider Internal Medicine | DX: J44.9 Chronic obstructive pulmonary disease, unspecified (principal) | CPT/HCPCS: 94060; 94727; 94729 ==

== ENCOUNTER 2023-10-16 10:29 | Outpatient (AMB) | payer MEDICARE, SELFPAY ==
[2023-10-16 10:33] VITALS: BP 126/78; PULSE 73; O2SAT 99; BMI 17.9
--- NOTE | 2023-10-16 10:33 | A.OFFVIS_ITS ---
Intake Vital Signs 3 10/16/23 10:33 Height 5 ft 6 in Weight 111 lb BMI 17.9 BP 126/78 Blood Pressure Location Rt brachial Position Sitting Pulse 73 Pulse Source Pulse Oximeter Pulse Oximetry (%) 99 Oxygen Delivery Method Room Air Intake Visit Reasons: chronic pulmonary disease: 6 week f/u Hand Mixer Required: No Automatic Fancy Machine Operator: Automatic Fancy Machine Operator offered & declined Allergies clindamycin [From Cleocin] Allergy (Verified 10/16/23 10:38) colitis hydromorphone [From Dilaudid] Allergy (Verified 10/16/23 10:38) apnea midazolam [From Versed] Allergy (Verified 10/16/23 10:38) rapid pulse Penicillins Allergy (Verified 10/16/23 10:38) Hives Sulfa (Sulfonamide Antibiotics) Allergy (Verified 10/16/23 10:38) rash NSAIDS (Non-Steroidal Anti-Inflamma Adverse Reaction (Verified 10/16/23 10:38) gi issues BACTRIM Adverse Reaction (Severe, Uncoded 10/16/23 10:38) Rash, ABD PAIN Medication List - Last Reconciled 10/16/23 by Majo Warner LPN amlodipine 5 mg PO DAILY 30 days aspirin 81 mg PO DAILY 90 days digoxin 125 mcg PO DAILY 90 days estradiol 0.01%(0.1mg/gram) grams vaginal ezetimibe 10 mg PO DAILY 90 days L.acidoph, paracasei,B. lactis (Digestive Advantage Advanced Probiotic) cells PO DAILY metoprolol tartrate 12.5 mg (1/2 x 25 mg) PO BID 30 days triamcinolone acetonide 0.5% 1 appl topical BID 14 days HPI chronic pulmonary disease: 6 week f/u 2 HPI0 Details Tika is a pleasant 83 year old female, former smoker, with 40 pack year history, quit 2006, with under lying history of lung cancer in 2010 s/p left upper lobectomy, h/o SVT maintained on digoxin and TIA 2021. She was followed for 5 years under the care of oncology in [place], denies any chemo/radiation and has been is remission since. She was referred by PCP for intermittent dyspnea on exertion. She noticed symptoms a little over a month ago and states dyspnea occurs mostly with moderate exertion such as stairs. At the last visit, she was sent for PFT and CXR and presents to review results. PFSH Surgical History (Updated 09/02/23 @ 11:30 by Majo Warner LPN) History of lobectomy of lung History of hip replacement (~2009) Social History (Updated 10/16/23 @ 10:41 by Majo Warner LPN) [facility]: [facility] Patient Tobacco Use Status: Former Tobacco user Tobacco use type: Cigarette Cigarette Packs Per Day: 1 Years Smoked: 40 e-Cigarette/Vaping Use: Never Used Second Hand Smoke Exposure: No service: No Current occupational status: retired Current occupational exposures/hazards: No Cognitive needs: No Hearing needs: No Vision needs: No Physical Exam Vital Signs: Last Vital Signs Pulse 73 10/16/23 10:33 BP 126/78 10/16/23 10:33 Pulse Ox 99 10/16/23 10:33 Oxygen Delivery Method Room Air 10/16/23 10:33 BMI result Body Mass Index 17.9 Results Reviewed Results Reviewed: [address] [address] XRay Report Signed Patient: Tika Ramos MR#: [id number] : 1940 Acct:[id number] Age/Sex: 83 / F ADM Date: 09/27/23 Loc: HO.RESP Attending Dr: Tammy Becerra NP Ordering Physician: Tammy Becerra NP Date of Service: 09/27/23 Procedure(s): XR chest 2V Accession Number(s): [id number] cc: Warren Gaffney MD; Tammy Becerra NP~ EXAMINATION: XR CHEST CLINICAL INFORMATION: COPD. COMPARISON: None available. TECHNIQUE: Frontal and lateral views of the chest were obtained. FINDINGS: The heart, great vessels and mediastinum are normal. There is atherosclerotic calcification of the aortic knob. There is hyperinflation, with mildly increased retrosternal lucency. There is biapical pleural thickening, right greater than left. No infiltrate, effusion or pneumothorax is seen. There is no acute osseous abnormality. There is a moderate thoracolumbar levoscoliosis. XR/XR chest 2V IMPRESSION: 1. There is hyperinflation, consistent with COPD. 2. No focal infiltrate or congestive heart failure is seen. Assessment & Plan Assessment & Plan (1) COPD (chronic obstructive pulmonary disease): Code(s): J44.9 - Chronic obstructive pulmonary disease, unspecified (2) Shortness of breath: Code(s): R06.02 - Shortness of breath Plan Reviewed CXR which revealed biapical scarring and hyperinflation of lungs. Reviewed PFT which revealed mild to moderate obstructive defect with FEV1/FVC 63% and FEV1 81%. Lung volumes normal and DLCO decreased at 58%. Discussed trialing an ICS/LABA which she was in agreement. All questions were answered and patient is in agreement of plan. Will follow up in 3 months to review response to inhaler. Medications: New 2 Advair HFA 45-21 mcg/actuation (fluticasone propion-salmeterol) 2 puffs inhalation BID 12 grams 3RF NS Coding Level of Care Code Est Pt Level 4 (55819) Diagnoses COPD (chronic obstructive pulmonary disease) J44.9 Shortness of breath R06.02
== END 2023-10-16 11:05 | disposition home or self-care (01) ==
PROVIDERS: PCP Family Medicine; Visit Provider Nurse Practitioner Family
DX: J44.9 Chronic obstructive pulmonary disease, unspecified (principal); R06.02 Shortness of breath
CPT/HCPCS: 99214

== ENCOUNTER → 2023-10-16 10:29 | Outpatient (BNVA) | payer MEDICARE, SELFPAY | PROVIDERS: PCP Family Medicine; Visit Provider Nurse Practitioner Family | DX: J44.9 Chronic obstructive pulmonary disease, unspecified (principal); R06.02 Shortness of breath | CPT/HCPCS: 99212 ==

== ENCOUNTER 2024-01-22 10:24 | Outpatient (AMB) | payer MEDICARE, SELFPAY ==
[2024-01-22 10:28] VITALS: BP 110/68; PULSE 68; O2SAT 97; BMI 17.9
--- NOTE | 2024-01-22 10:28 | A.OFFVIS_ITS ---
Intake Vital Signs 01/22/24 10:28 Height 5 ft 6 in Weight 111 lb BMI 17.9 BP 110/68 Blood Pressure Location Lt brachial Position Sitting Pulse 68 Pulse Source Pulse Oximeter Pulse Oximetry (%) 97 Oxygen Delivery Method Room Air Intake Visit Reasons: 3 month f/u Photography Sales Associate Required: No Regional Account Executive: Regional Account Executive offered & declined Accompanied by: Self / Same As Patient Allergies clindamycin [From Cleocin] Allergy (Verified 01/22/24 10:34) colitis hydromorphone [From Dilaudid] Allergy (Verified 01/22/24 10:34) apnea midazolam [From Versed] Allergy (Verified 01/22/24 10:34) rapid pulse Penicillins Allergy (Verified 01/22/24 10:34) Hives Sulfa (Sulfonamide Antibiotics) Allergy (Verified 01/22/24 10:34) rash NSAIDS (Non-Steroidal Anti-Inflamma Adverse Reaction (Verified 01/22/24 10:34) gi issues BACTRIM Adverse Reaction (Severe, Uncoded 01/22/24 10:34) Rash, ABD PAIN Medication List - Last Reconciled 01/22/24 by Majo Warner LPN albuterol sulfate 90 mcg/actuation 2 puffs inhalation Q4-6H PRN amlodipine 5 mg PO DAILY 30 days aspirin 81 mg PO DAILY 90 days estradiol 0.01%(0.1mg/gram) grams vaginal L.acidoph, paracasei,B. lactis (Digestive Advantage Advanced Probiotic) cells PO DAILY metoprolol tartrate 12.5 mg (1/2 x 25 mg) PO BID 30 days triamcinolone acetonide 0.5% 1 appl topical BID 14 days HPI 3 month f/u HPI Details Tika is a pleasant 83 year old female, former smoker, with 40 pack year history, quit 2006, with underlying COPD, history of lung cancer in 2010 s/p left upper lobectomy, h/o SVT recently d/c digoxin under guidance of cardiology and TIA 2021. She was followed for 5 years under the care of oncology in [place], denies any chemo/radiation and has been is remission since. At the last visit, she was started on Advair for dyspnea with moderate exertion. Today she presents for a routine follow up. She reports having overall improvement in exercise capacity, no longer feeling breathlessness with exertion, without the use of medication. She denies cough, wheezing or chest tightness. She trialed the albuterol inhaler twice since last visit with no significant change and is not interested in trialing advair. She denies any recent illnesses or visits to urgent care. [facility] Surgical History (Updated 09/02/23 @ 11:30 by Majo Warner LPN) History of lobectomy of lung History of hip replacement (~2009) Social History (Updated 01/22/24 @ 10:36 by Majo Warner LPN) [facility] Patient Tobacco Use Status: Former Tobacco user Tobacco use type: Cigarette Cigarette Packs Per Day: 1 Years Smoked: 40 Smoked in Last 30 Days: No e-Cigarette/Vaping Use: Never Used Second Hand Smoke Exposure: No service: No Current occupational status: retired Current occupational exposures/hazards: No Cognitive needs: No Hearing needs: No Vision needs: No Review of Systems Const Denies chills, Denies excessive sweating, Denies fever(s), Denies headache(s) and Denies night sweats Eyes Denies dry eyes, Denies irritation and Denies itchy eyes ENT Reports Normal hearing present, Denies headache(s), Denies nasal congestion, Denies nasal discharge, Denies post nasal drip and Denies sore throat Card Denies chest pain, Denies chest pain at rest, Denies chest pain with activity, Denies claudication, Denies leg edema, Denies dyspnea, Denies dyspnea on exertion, Denies orthopnea and Denies paroxysmal nocturnal dyspnea Resp Denies chest congestion, Denies cough, Denies excessive phlegm production, Denies pain on inspiration, Denies pain with cough, Denies dyspnea, Denies dyspnea on exertion, Denies stridor and Denies wheezing Musc Denies myalgias Neuro Reports Normal hearing present and Denies headache(s) Endo Denies excessive sweating Santana/Lymph Denies lymphadenopathy Aller/Immun Denies itchy eyes, Denies seasonal rhinorrhea and Denies wheezing Physical Exam Vital Signs: Last Vital Signs Pulse 68 01/22/24 10:28 BP 110/68 01/22/24 10:28 Pulse Ox 97 01/22/24 10:28 Oxygen Delivery Method Room Air 01/22/24 10:28 BMI result Body Mass Index 17.9 Const General: cooperative, healthy appearing, comfortable, no acute distress, well developed and alert Orientation/consciousness: patient oriented x3 Limitations: no limitations HEENT Head: Yes normal to inspection, Yes normocephalic and Yes atraumatic Ears: hearing grossly normal bilaterally and external ears normal Eyes General: appearance normal, both eyes and all related structures Eyelids: Yes eyelids normal Sclerae: sclerae normal EOM: EOMs intact bilaterally Neck Neck: Yes normal visual inspection and Yes no lymphadenopathy Lymphatic: no lymphadenopathy noted Chest Chest palpation & inspection: normal inspection of the chest Resp Effort & Inspection: normal respiratory effort, able to speak in complete sentences, no audible wheezes, no cough, no stridor, not tachypneic, no tripod positioning and no use of accessory muscles Auscultation: clear to auscultation bilaterally Cardio Jugular venous distension: no JVD Rate: regular rate Rhythm: regular rhythm Skin Other: warm, dry General skin exam: no rashes or lesions noted Neuro General: patient oriented x3 Cranial nerves: Yes Normal hearing present Cognition (Neuro): normal cognition Gait exam (Neuro): Normal gait present Extrem General: Yes normal to inspection, Yes capillary refill normal, Yes no clubbing, cyanosis or edema and Yes no pedal edema Psych Appearance: grossly normal and well kempt Speech and movement: Normal speech and movement present and Clear speech present Affect: normal affect Attitude: cooperative Thought process: Normal thought process present Thought content: Normal thought content present Insight: Good insight present (Psych) Judgement: Good judgement present (Psych) Assessment & Plan Assessment & Plan (1) COPD (chronic obstructive pulmonary disease): Code(s): J44.9 - Chronic obstructive pulmonary disease, unspecified Plan Tika reports little to no respiratory symptoms since last visit and no recent COPD exacerbations. She is aware she can use her albuterol or Advair if symptoms begin to worsen and notify office. All questions were answered and patient is in agreement of plan. Will follow up on an as needed basis. Coding Level of Care Code Est Pt Level 3 (48682) Diagnoses COPD (chronic obstructive pulmonary disease) J44.9
== END 2024-01-22 10:57 | disposition home or self-care (01) ==
PROVIDERS: PCP Family Medicine; Visit Provider Nurse Practitioner Family
DX: J44.9 Chronic obstructive pulmonary disease, unspecified (principal)
CPT/HCPCS: 99213

== ENCOUNTER → 2024-01-22 10:24 | Outpatient (BNVA) | payer MEDICARE, SELFPAY | PROVIDERS: PCP Family Medicine; Visit Provider Nurse Practitioner Family | DX: J44.9 Chronic obstructive pulmonary disease, unspecified (principal); Z85.118 Personal history of other malignant neoplasm of bronchus and lung | CPT/HCPCS: 99212 ==

== ENCOUNTER 2024-02-07 11:30 | Outpatient (AMB) | payer MEDICARE, SELFPAY ==
[2024-02-07 11:33] VITALS: BP 120/66; PULSE 83; O2SAT 97; BMI 18.3
--- NOTE | 2024-02-07 11:33 | A.OFFPC_ITS ---
Vital Signs 02/07/24 11:33 Height 5 ft 6 in Weight 113 lb 2 oz BMI 18.3 BP 120/66 Blood Pressure Location Lt brachial Position Sitting Pulse 83 Pulse Source Pulse Oximeter Pulse Oximetry (%) 97 Oxygen Delivery Method Room Air Intake Visit Reasons: follow up/chronic conditions Intake Note: Patient is here to follow up on chronic conditions. Allergies clindamycin [From Cleocin] Allergy (Verified 02/07/24 11:36) colitis hydromorphone [From Dilaudid] Allergy (Verified 02/07/24 11:36) apnea midazolam [From Versed] Allergy (Verified 02/07/24 11:36) rapid pulse Penicillins Allergy (Verified 02/07/24 11:36) Hives Sulfa (Sulfonamide Antibiotics) Allergy (Verified 02/07/24 11:36) rash NSAIDS (Non-Steroidal Anti-Inflamma Adverse Reaction (Verified 02/07/24 11:36) gi issues BACTRIM Adverse Reaction (Severe, Uncoded 02/07/24 11:36) Rash, ABD PAIN Tobacco use date assessed: 02/07/24 Dental Screening Dental Screen Date: 07/24/23 Did you have a dental visit in the last 12 months?: Yes Did you have a dental problem in the last 6 months where you did not have access to dental care?: No Was dental information given to patient?: Patient has dentist HPI follow up/chronic conditions HPI Details 83 y/o female presents to f/u chronic co nditions such as hypertension and COPD. Had seen [facility] 11/21/23 for shortness of breath. Was willing to have an exercise echocardiogram to assess functional capacity. Recommended her to discontinue digoxin. Blood pressure today 120/66. She is on amlodipine 5mg, metoprolol 12.5mg b.i.d. [facility] Surgical History History of lobectomy of lung History of hip replacement (~2009) Social History Housing: Condominium Patient Tobacco Use Status: Former Tobacco user Tobacco use type: Cigarette Cigarette Packs Per Day: 1 Years Smoked: 40 e-Cigarette/Vaping Use: Never Used Second Hand Smoke Exposure: No service: No Current occupational status: retired Current occupational exposures/hazards: No Cognitive needs: No Hearing needs: No Vision needs: No Questionnaire PHQ-9 Over the last 2 weeks, how often have you been bothered by any of the following problems? 1. Little interest or pleasure in doing things: not at all 2. Feeling down, depressed, or hopeless: not at all 3. Trouble falling or staying asleep, or sleeping too much: not at all 4. Feeling tired or having little energy: not at all 5. Poor appetite or overeating: not at all 6. Feeling bad about yourself - or that you are a failure or have let yourself or your family down: not at all 7. Trouble concentrating on things, such as reading the newspaper or watching television: not at all 8. Moving or speaking so slowly that other people could have noticed. Or the opposite - being so fidgety or restless that you have been moving around a lot more than usual: not at all 9. Thoughts that you would be better off or of hurting yourself in some way: not at all Total score: 0 Depression Screening Interpretation: Negative Depression Screening Done: Yes Source: Developed by Drs. Db Eric, Winifred Cardoso, Allan Talamantes and colleagues, with an educational astrid from [employer]. Thrive Questionnaire Date Thrive assessed: 02/07/24 I am a: Patient What is your living situation today?: I have a steady place to live Within the past 12 months, did the food you bought not last and you didn't have the money to get more?: Never true Within the past 12 months, did you worry whether your food would run out before you got money to buy more?: Never true Do you have trouble paying for medicines?: No Do you have trouble getting transportation to medical appointments?: No Do you have trouble paying your heating and electricity bill?: No Do you have trouble taking care of your child, family member or friend?: No Do you have trouble with day-to-day activities such as bathing, preparing meals, shopping, managing finances, etc.?: No Are you currently unemployed and looking for a job?: No Are you interested in more education?: No THRIVE Score: 0 AUDIT C Alcohol Use Questionnaire (AUDIT-C) 1. How often do you have a drink containing alcohol?: Monthly or less 2. How many drinks containing alcohol do you have on a typical day when you are drinking?: 1 or 2 3. How often do you have six or more drinks on one occasion?: Never Total Score: 1 MARIANN-7 AMB Questionnaire MARIANN-7 Date MARIANN - 7 assessed: 02/07/24 Feeling nervous, anxious, or on edge: 0 = Not at all Not being able to stop or control worryin = Not at all Worrying too much about different things: 0 = Not at all Trouble relaxin = Not at all Being so restless that it is hard to sit still: 0 = Not at all Becoming easily annoyed or irritable: 0 = Not at all Feeling afraid as if something awful might happen: 0 = Not at all Total MARIANN-7 score (0-4 normal; 5-9 mild; 10-14 moderate; 15-21 severe): 0 Source: Developed by Drs. Db Eric, Winifred Cardoso, Allan Talamantes and colleagues, with an educational astrid from [employer]. Review of Systems Const Denies chills, Denies fatigue, Denies fever(s), Denies headache(s) and Denies weakness ENT Denies dizziness and Denies headache(s) Card Denies chest pain, Denies lightheadedness, Denies dyspnea and Denies other (Palpitations) Resp Denies cough, Denies dyspnea, Denies wheezing and Denies other ( shortness of breath) Musc Denies numbness and Denies tingling Neuro Denies dizziness, Denies headache(s), Denies numbness, Denies tingling, Denies paresthesias and Denies weakness Psych Denies anxiety and Denies depression Endo Denies fatigue Aller/Immun Denies wheezing Physical exam (Primary Care) Vital Signs: Last Vital Signs Pulse 83 02/07/24 11:33 BP 120/66 02/07/24 11:33 Pulse Ox 97 02/07/24 11:33 Oxygen Delivery Method Room Air 02/07/24 11:33 BMI result Body Mass Index 18.3 Tobacco/Smoking Status: Tobacco use Status Tobacco use date assessed 02/07/24 02/07/24 11:38 Patient Tobacco Use Status Former Tobacco user 02/07/24 11:38 Tobacco use type Cigarette 02/07/24 11:38 e-Cigarette/Vaping Use Never Used 02/07/24 11:38 PHQ-9: PHQ-9 Score PHQ-9: Total score 0 02/07/24 11:48 Depression Screening Interpretation: Negative Thrive Assessment: Date of Thrive Assessment Date Thrive assessed 02/07/24 02/07/24 11:42 Const General: no acute distress and well developed Nutritional Appearance: underweight Orientation/consciousness: patient oriented x3 HENMT Head: Yes normocephalic and Yes atraumatic Eyes General: appearance normal, both eyes and all related structures Pupils: Equal, round and reactive pupils present EOM: EOMs intact bilaterally Resp Effort & Inspection: normal respiratory effort Auscultation: clear to auscultation bilaterally Cardio Rate: regular rate Rhythm: regular rhythm Heart sounds: S1 normal heart sound present, S2 normal heart sound present, no gallops, no murmurs and no rubs Neuro General: patient oriented x3 and gait normal Cranial nerves: Yes Equal, round and reactive pupils present Psych Affect: normal affect Assessment and Plan Assessment & Plan (1) Essential hypertension: Code(s): I10 - Essential (primary) hypertension Plan: Blood?pressure?appears?well?controlled?today.??Goal?is?less?than?140/90 Patient?is?concerned?about?her?lower?blood?pressures?when?she?awakes?in?the?morn ing. Encouraged?good?hydration?and?s he?can?take?her?2nd?dose?of?metoprolol?around?dinnertime If?she?is?still?having?difficulty?with?low?blood?pressures, we?can?consider?decreasing?her?amlodipine (2) COPD (chronic obstructive pulmonary disease): Code(s): J44.9 - Chronic obstructive pulmonary disease, unspecified Plan: Lungs?are?clear?today.??No?recent?exacerbations Follow-up?with?Pulmonary?as?recommend (3) Shortness of breath: Code(s): R06.02 - Shortness of breath Plan: Had?referred?her?to?Cardiology?to?see?if?there?is?a?cardiac?component?to?her?ani rtness?of?breath Dr Wei ordered?an?exercise?stress?test?but ?it?appears?that?the?referral?for?this?resulted?in?her?being?scheduled?in?[place] ?rather?than?[place].??Patient?canceled?the?test I?asked?her?to?let?her?administrative supervisor?know?as?I?am?sure?they?can?get?th is?test?done?in?[place].??Otherwise?I?can?try?to?get?this?ordered?for?her[facility]. (4) Fatigue: Code(s): R53.83 - Other fatigue Plan: Mild?fatigue Encouraged?good?hydration She?will?also?adjust?how?she?is?taking?her?metoprolol?as?described?above Coding Level of Care Code Est Pt Level 4 (23214) Diagnoses Essential hypertension I10 COPD (chronic obstructive pulmonary disease) J44.9 Shortness of breath R06.02 Fatigue R53.83
== END 2024-02-07 12:05 | disposition home or self-care (01) ==
PROVIDERS: PCP Family Medicine; Visit Provider Family Medicine
DX: I10 Essential (primary) hypertension (principal); J44.9 Chronic obstructive pulmonary disease, unspecified; R06.02 Shortness of breath; R53.83 Other fatigue
CPT/HCPCS: 99214

== ENCOUNTER 2024-05-01 11:25 | Outpatient (AMB) | payer MEDICARE, SELFPAY ==
[2024-05-01 11:34] VITALS: BP 120/60; PULSE 62; O2SAT 99; BMI 18.6
--- NOTE | 2024-05-01 11:34 | A.OFFPC_ITS ---
Vital Signs 05/01/24 11:34 Height 5 ft 6 in Weight 115 lb 6 oz BMI 18.6 BP 120/60 Blood Pressure Location Lt brachial Position Sitting Pulse 62 Pulse Source Pulse Oximeter Pulse Oximetry (%) 99 Oxygen Delivery Method Room Air Intake Visit Reasons: extended exam Intake Note: Patient is here for extended exam, and did not get her labs done. Allergies clindamycin [From Cleocin] Allergy (Verified 05/01/24 11:38) colitis hydromorphone [From Dilaudid] Allergy (Verified 05/01/24 11:38) apnea midazolam [From Versed] Allergy (Verified 05/01/24 11:38) rapid pulse Penicillins Allergy (Verified 05/01/24 11:38) Hives Sulfa (Sulfonamide Antibiotics) Allergy (Verified 05/01/24 11:38) rash NSAIDS (Non-Steroidal Anti-Inflamma Adverse Reaction (Verified 05/01/24 11:38) gi issues BACTRIM Adverse Reaction (Severe, Uncoded 05/01/24 11:38) Rash, ABD PAIN Medication List - Last Reconciled 05/01/24 by Warren Gaffney MD albuterol sulfate 90 mcg/actuation 2 puffs inhalation Q4-6H PRN amlodipine 5 mg PO DAILY 30 days aspirin 81 mg PO DAILY 90 days estradiol 0.01%(0.1mg/gram) grams vaginal L.acidoph, paracasei,B. lactis (Digestive Advantage Advanced Probiotic) cells PO DAILY metoprolol tartrate 12.5 mg (1/2 x 25 mg) PO BID 30 days triamcinolone acetonide 0.5% 1 appl topical BID 14 days Tobacco use date assessed: 05/01/24 Fall risk assessment: No Falls in past year Last assessed Fall Risk: 05/01/24 Dental Screening Dental Screen Date: 05/01/24 Did you have a dental visit in the last 12 months?: No Did you have a dental problem in the last 6 months where you did not have access to dental care?: No Was dental information given to patient?: Patient declined HPI extended exam HPI Details 83 y/o female presents for an extended e xam with f/u labs and health maintenance. No recent labs to review. Blood pressure today 120/60. She is on amlodipine 5mg, metoprolol 12.5mg b.i.d. HPI Comments History of Present Illness Details Documentation assistance for Warren Gaffney MD, was provided by Guanako Gutierrez,? [employer] Registrar on 05/01/2024 at 12:00 PM SHAYNE. I, Dr. Gaffney, have read, observed, and verified documentation. [facility] Surgical History (Reviewed 05/01/24 @ 11:39 by Jenny Ley [facility]) History of lobectomy of lung History of hip replacement (~2009) Social History (Reviewed 05/01/24 @ 11:39 by Jenyn Ley [facility]) Housing: Condominium Patient Tobacco Use Status: Former Tobacco user Tobacco use type: Cigarette Cigarette Packs Per Day: 1 Years Smoked: 40 e-Cigarette/Vaping Use: Never Used Second Hand Smoke Exposure: No service: No Current occupational status: retired Current occupational exposures/hazards: No Cognitive needs: No Hearing needs: No Vision needs: No Questionnaire PHQ-9 Over the last 2 weeks, how often have you been bothered by any of the following problems? 1. Little interest or pleasure in doing things: not at all 2. Feeling down, depressed, or hopeless: not at all 3. Trouble falling or staying asleep, or sleeping too much: not at all 4. Feeling tired or having little energy: not at all 5. Poor appetite or overeating: not at all 6. Feeling bad about yourself - or that you are a failure or have let yourself or your family down: not at all 7. Trouble concentrating on things, such as reading the newspaper or watching television: not at all 8. Moving or speaking so slowly that other people could have noticed. Or the opposite - being so fidgety or restless that you have been moving around a lot more than usual: not at all 9. Thoughts that you would be better off or of hurting yourself in some way: not at all Total score: 0 Depression Screening Interpretation: Negative Depression Screening Done: Yes 51920 - PHQ-9 Billing: Yes Source: Developed by Drs. Db Eric, Winifred Cardoso, Allan Talamantes and colleagues, with an educational astrid from [employer]. Thrive Questionnaire Date Thrive assessed: 05/01/24 I am a: Patient What is your living situation today?: I have a steady place to live Within the past 12 months, did the food you bought not last and you didn't have the money to get more?: Never true Within the past 12 months, did you worry whether your food would run out before you got money to buy more?: Never true Do you have trouble paying for medicines?: No Do you have trouble getting transportation to medical appointments?: No Do you have trouble paying your heating and electricity bill?: No Do you have trouble taking care of your child, family member or friend?: No Do you have trouble with day-to-day activities such as bathing, preparing meals, shopping, managing finances, etc.?: No Are you currently unemployed and looking for a job?: No Are you interested in more education?: No THRIVE Score: 0 AUDIT C Alcohol Use Questionnaire (AUDIT-C) 1. How often do you have a drink containing alcohol?: Monthly or less 2. How many drinks containing alcohol do you have on a typical day when you are drinking?: 1 or 2 3. How often do you have six or more drinks on one occasion?: Never Total Score: 1 MARIANN-7 AMB Questionnaire MARIANN-7 Date MARIANN - 7 assessed: 05/01/24 Feeling nervous, anxious, or on edge: 0 = Not at all Not being able to stop or control worryin = Not at all Worrying too much about different things: 0 = Not at all Trouble relaxin = Not at all Being so restless that it is hard to sit still: 0 = Not at all Becoming easily annoyed or irritable: 0 = Not at all Feeling afraid as if something awful might happen: 0 = Not at all Total MARIANN-7 score (0-4 normal; 5-9 mild; 10-14 moderate; 15-21 severe): 0 Source: Developed by Drs. Db Eric, Winifred Cardoso, Allan Talamantes and colleagues, with an educational astrid from [employer]. MARIANN-7 Assessment Billing MARIANN-7 Assessment Tool: MARIANN-7 Assessment 57945 Review of Systems Const Denies chills, Denies fatigue, Denies fever(s), Denies headache(s) and Denies weakness Eyes Denies change in vision ENT Denies dizziness, Denies headache(s), Denies hearing loss, Denies nasal congestion, Denies sinus pain, Denies sinus pressure and Denies sore throat Card Denies chest pain, Denies lightheadedness, Denies dyspnea and Denies other (palpitations) Resp Denies cough, Denies dyspnea and Denies wheezing GI Reports abdominal pain, Denies melena, Denies hematochezia, Denies change in bowel habits, Denies dyspepsia and Denies nausea Denies hematuria and Denies dysuria Musc Denies abnormal gait, Denies myalgias, Denies arthralgias, Denies numbness and Denies tingling Skin/Breast Denies rash, Denies unusual bruising and Denies wounds Neuro Denies abnormal gait, Denies dizziness, Denies headache(s), Denies memory loss, Denies numbness, Denies Sensory deficit (Neuro), Denies tingling and Denies weakness Psych Denies anxiety, Denies depression and Denies memory loss Endo Denies cold intolerance, Denies fatigue, Denies heat intolerance, Denies polydipsia and Denies polyuria Santana/Lymph Denies easy bleeding and Denies easy bruising Aller/Immun Denies wheezing Physical exam (Primary Care) Vital Signs: Last Vital Signs Pulse 62 05/01/24 11:34 BP 120/60 05/01/24 11:34 Pulse Ox 99 05/01/24 11:34 Oxygen Delivery Method Room Air 05/01/24 11:34 BMI result Body Mass Index 18.6 Tobacco/Smoking Status: Tobacco use Status Tobacco use date assessed 05/01/24 05/01/24 11:44 Patient Tobacco Use Status Former Tobacco user 05/01/24 11:36 Tobacco use type Cigarette 05/01/24 11:36 e-Cigarette/Vaping Use Never Used 05/01/24 11:36 PHQ-9: PHQ-9 Score PHQ-9: Total score 0 05/01/24 11:52 Depression Screening Interpretation: Negative Thrive Assessment: Date of Thrive Assessment Date Thrive assessed 05/01/24 05/01/24 11:44 Const General: no acute distress, well developed, alert and awake Nutritional Appearance: well nourished Orientation/consciousness: patient oriented x3 HENMT Head: Yes normocephalic and Yes atraumatic Ears: hearing grossly normal bilaterally and TM's normal bilaterally General nose exam: Normal external nose present and Normal nares present Mouth: Normal oral and palatal mucosa present and moist mucous membranes Teeth and gingiva: dentition normal Throat: Yes posterior oropharynx normal Eyes General: appearance normal, both eyes and all related structures Pupils: Equal, round and reactive pupils present and Pupil accommodation reflex normal EOM: EOMs intact bilaterally Neck Neck: Yes normal visual inspection, Yes no lymphadenopathy and Yes trachea midline Thyroid: Thyroid normal Carotids: no bruits Lymphatic: no lymphadenopathy noted Chest Chest palpation & inspection: normal inspection of the chest Resp Effort & Inspection: normal respiratory effort Auscultation: clear to auscultation bilaterally Cardio Rate: regular rate Rhythm: regular rhythm Heart sounds: S1 normal heart sound present, S2 normal heart sound present, no gallops, no murmurs and no rubs Bruits: no abdominal aortic bruits and no carotid bruits GI Palpation (GI): No Abdominal aortic bruit present, Soft to palpation, nontender, No hepatosplenomegaly present and No Rebound tenderness present Auscultation: normal bowel sounds General: Yes no CVA tenderness Back/Spine/Pelvis Back: no CVA tenderness Cervical Spine: cervical ROM normal and No Cervical spine tenderness Thoracic/Lumbar Spine: thoraco-lumbar ROM normal, No pain with thoraco-lumbar ROM, No thoracic spinal tenderness and No lumbar spinal tenderness Skin Lesions: no lesions Rashes: no rashes Trauma: no lacerations or abrasions Wounds: no wounds Nails: normal Neuro General: patient oriented x3 Cranial nerves: Yes Equal, round and reactive pupils present Cognition (Neuro): normal cognition Gait exam (Neuro): Normal gait present Motor exam (neuro): 5/5 motor strength present throughout Sensory Exam: No Sensory deficit (Neuro) Deep tendon reflexes (DTR's): Right patellar reflex intensity grade: 2+ and Left patellar reflex intensity grade: 2+ Extrem General: Yes normal to inspection and No edema Psych Appearance: grossly normal Affect: normal affect Attitude: cooperative Thought process: Normal thought process present Assessment and Plan Assessment & Plan (1) Essential hypertension: Code(s): I10 - Essential (primary) hypertension Plan: Blood?pressure?is?controlled.??Goal?is?less?than?140/90 Continue?current?medication?regimen (2) COPD (chronic obstructive pulmonary disease): Code(s): J44.9 - Chronic obstructive pulmonary disease, unspecified Plan: Lungs?are?clear Patient?is?breathing?easily Stable (3) Hypercholesterolemia: Code(s): E78.00 - Pure hypercholesterolemia, unspecified Plan: Patient?is?no?longer?taking?medications?for?cholesterol?control Check?labs (4) Abdominal pain: Code(s): R10.9 - Unspecified abdominal pain Plan: Likely?IBS Hydrate?well Advise?an?OTC?soluble?fiber?tablet?such?as?FiberCon (5) Screening for osteoporosis: Code(s): Z13.820 - Encounter for screening for osteoporosis Plan: Recommended?bone?density?testing?but?patient?declined (6) Adult general medical exam: Code(s): Z00.00 - Encounter for general adult medical examination without abnormal findings Plan: 83-year-old?female?presents?for?an?extended?exam Encouraged?healthy?diet?and?exercise Discussed?fall?prevention?including?vision?care-patient?sees?Ophthalmology, keeping?walk?ways?clear?and?keeping?legs?strong. Patient?has?normal?gait?and?still?rides?a?bicycle Coding Level of Care Code Est Pt Level 4 (56457) Diagnoses Essential hypertension I10 COPD (chronic obstructive pulmonary disease) J44.9 Hypercholesterolemia E78.00 Abdominal pain R10.9 Screening for osteoporosis Z13.820 Adult general medical exam Z00.00 Additional Codes MARIANN-7 Assessment Billing - MARIANN-7 Assessment Tool: MARIANN-7 Assessment [id number] ([id number])
== END 2024-05-01 15:11 | disposition home or self-care (01) ==
PROVIDERS: PCP Family Medicine; Visit Provider Family Medicine
DX: I10 Essential (primary) hypertension (principal); J44.9 Chronic obstructive pulmonary disease, unspecified; E78.00 Pure hypercholesterolemia, unspecified; R10.9 Unspecified abdominal pain; Z13.820 Encounter for screening for osteoporosis
CPT/HCPCS: 99214

== ENCOUNTER 2024-05-15 08:18 | Outpatient (REF) | payer MEDICARE, SELFPAY ==
[2024-05-15 11:18] LABS: MANUAL DIFF FLAG NO
[2024-05-15 11:28] LABS: Basophils Percent Auto 0.6 % (0-2); Eosinophils Absolute Auto 0.2 X10*3/uL (0.0-0.4); Eosinophils Percent Auto 3.3 % (0-4); Hematocrit 37.6 % (37.0-47.0); Hemoglobin 12.9 g/dl (12.0-16.0); Imm Gran Abs Auto 0.01 X10*3/uL (0.00-0.03); Imm Gran Pct Auto 0.2 % (0.0-0.4); Lymphocytes Absolute Auto 1.4 X10*3/uL (1.2-4.9); Lymphocytes Percent Auto 20.8 % (20-40); Mean Corpuscular HGB Conc 34.3 g/dl (31.0-35.0); Mean Corpuscular Hemoglobin 32.3 pg (27.0-33.0); Mean Corpuscular Volume 94.2 fL (80.0-98.0); Mean Platelet Volume 10.4 fL (9.4-12.3); Monocytes Absolute Auto 0.6 X10*3/uL (0.1-1.2); Monocytes Percent Auto 9.4 % (2-11); Neutrophils Absolute Auto 4.4 x10*3/uL (2.0-8.3); Neutrophils Percent Auto 65.7 % (45-73); Platelet Count 189 X10*3/uL (160-400); Red Blood Count 3.99 X10*6/uL (4.20-5.50); Red Cell Distribution Width 11.9 % (11.0-16.0); White Blood Count 6.6 X10*3/uL (4.8-10.8)
[2024-05-15 11:42] LABS: Alanine Aminotransferase 22 U/L (0-31); Albumin Level 4.5 g/dL (3.5-5.0); Alkaline Phosphatase 73 U/L (39-117); Anion Gap 11 (12-20); Aspartate Amino Transferase 24 U/L (5-31); Bilirubin Total 0.6 mg/dL (0.0-1.0); Blood Urea Nitrogen 21 mg/dL (9-16); Calcium 9.3 mg/dL (8.4-10.2); Carbon Dioxide 28 mmol/L (22-29); Chloride 104 mmol/L (96-108); Cholesterol 184 mg/dL (<200); Estimated Glomerular Filt Rate 40; Glucose Fasting 90 mg/dL (60-99); HDL Cholesterol 56 mg/dL (>40); Iron 112 mcg/dL (30-160); LDL Cholesterol Calculated 108 mg/dL (<100); Percent Iron Saturation 39 % (15-50); Potassium 3.8 mmol/L (3.3-5.1); Sodium 139 mmol/L (135-145); Total Iron Binding Capacity 286 mcg/dL (228-428); Total Protein 7.6 g/dL (6.5-8.0); Triglycerides 102 mg/dL (<150); Unsaturated Iron Binding 174 ug/dL
[2024-05-15 12:40] LABS: Free T4 (Free Thyroxine) 0.87 ng/dL (0.71-1.85)
== END 2024-05-15 08:19 | disposition home or self-care (01) ==
LOC: HO.WFDLDS 08:18
PROVIDERS: Visit Provider Family Medicine
DX: Z00.00 Encounter for general adult medical examination without abnormal findings (principal); D64.9 Anemia, unspecified
CPT/HCPCS: 36415; 80053; 80061; 83540; 84439; 84443; 85025

== ENCOUNTER 2024-05-22 12:59 | Outpatient (AMB) | payer MEDICARE, SELFPAY ==
--- NOTE | 2024-05-22 12:55 | A.OFFPC_ITS ---
Intake Visit Reasons: f/u CPE-labs via telemedicine Intake Note: Patient would like labs printed so she can pick them up. 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 Allergies clindamycin [From Cleocin] Allergy (Verified 05/22/24 12:56) colitis hydromorphone [From Dilaudid] Allergy (Verified 05/22/24 12:56) apnea midazolam [From Versed] Allergy (Verified 05/22/24 12:56) rapid pulse Penicillins Allergy (Verified 05/22/24 12:56) Hives Sulfa (Sulfonamide Antibiotics) Allergy (Verified 05/22/24 12:56) rash NSAIDS (Non-Steroidal Anti-Inflamma Adverse Reaction (Verified 05/22/24 12:56) gi issues BACTRIM Adverse Reaction (Severe, Uncoded 05/01/24 11:38) Rash, ABD PAIN Medication List - Last Reconciled 05/22/24 by Warren Gaffney MD albuterol sulfate 90 mcg/actuation 2 puffs inhalation Q4-6H PRN amlodipine 5 mg PO DAILY 30 days aspirin 81 mg PO DAILY 90 days estradiol 0.01%(0.1mg/gram) grams vaginal L.acidoph, paracasei,B. lactis (Digestive Advantage Advanced Probiotic) cells PO DAILY metoprolol tartrate 12.5 mg (1/2 x 25 mg) PO BID 30 days Tobacco use date assessed: 05/01/24 Dental Screening Dental Screen Date: 05/01/24 HPI f/u CPE-labs via telemedicine HPI Details 83 y/o female presents to f/u CPE-labs v ia telemedicine. Labs were drawn 05/15/24. Reviewed labs with pt. RBC mildly low at 3.99. Triglycerides 102. TC 184. LDL 108. HDL 56. TSH elevated at 4.20. Has complaints of urinary frequency. [facility] Surgical History History of lobectomy of lung History of hip replacement (~2009) Social History Housing: Condominium Patient Tobacco Use Status: Former Tobacco user Tobacco use type: Cigarette Cigarette Packs Per Day: 1 Years Smoked: 40 Packs Per Year: 40 e-Cigarette/Vaping Use: Never Used Second Hand Smoke Exposure: No service: No Current occupational status: retired Current occupational exposures/hazards: No Cognitive needs: No Hearing needs: No Vision needs: No Questionnaire Thrive Questionnaire Date Thrive assessed: 05/01/24 MARIANN-7 AMB Questionnaire MARIANN-7 Date MARIANN - 7 assessed: 05/01/24 Source: Developed by Drs. Db Eric, Winifred Cardoso, Allan Talamantes and colleagues, with an educational astrid from [employer]. Physical exam (Primary Care) Tobacco/Smoking Status: Tobacco use Status Tobacco use date assessed 05/01/24 05/22/24 12:58 Patient Tobacco Use Status Former Tobacco user 05/22/24 12:58 Tobacco use type Cigarette 05/22/24 12:58 e-Cigarette/Vaping Use Never Used 05/22/24 12:58 Thrive Assessment: Date of Thrive Assessment Date Thrive assessed 05/01/24 05/22/24 12:58 Telehealth Telehealth Telehealth Platform: Telephone Location of provider rendering services: practice address Location of patient: address on file Patient Identification confirmed using: Name, : Yes Telehealth method: voice only Patient verbally consented to treatment: Yes Patient verbally consented to billing insurance company: Yes Patient informed of any privacy concerns related to visit: Yes Minutes spent on Phone/Video with Pt.: 11 Assessment and Plan Assessment & Plan (1) Elevated TSH: Code(s): R79.89 - Other specified abnormal findings of blood chemistry Plan: Will?repeat?in?about?2?months. Follow-up?at?next?visit (2) Hypercholesterolemia: Code(s): E78.00 - Pure hypercholesterolemia, unspecified Plan: Mildly?elevated?LDL?cholesterol She?notes?that?she?has?had?some?dietary?indiscretions?and?will?make?some?lifesty le?changes. We?can?recheck?this?at?a?subsequent?visit. (3) Renal insufficiency: Code(s): N28.9 - Disorder of kidney and ureter, unspecified Plan: GFR?is?low Will?cont inue?to?monitor?and?if?this?continues?to?decrease,?would?refer?to?Nephrology. Orders: Orders Triiodothyronine T3 Total Today E03.9 - Hypothyroidism, unspecified, R79.89 - Other specified abnormal findings of blood chemistry Thyroid Stimulating Hormone Today E03.9 - Hypothyroidism, unspecified, R79.89 - Other specified abnormal findings of blood chemistry Basic Metabolic Panel Today N28.9 - Disorder of kidney and ureter, unspecified, Z00.00 - Encounter for general adult medical examination without abnormal findings Free T4 (Free Thyroxine) Today E03.9 - Hypothyroidism, unspecified, R79.89 - Other specified abnormal findings of blood chemistry Coding Level of Care Code Tele Est Pt Level 2 (32251) Diagnoses Elevated TSH R79.89 Hypercholesterolemia E78.00 Renal insufficiency N28.9
== END 2024-05-22 15:20 | disposition home or self-care (01) ==
LOC: HO.HMGFM 12:59
PROVIDERS: PCP Family Medicine; Visit Provider Family Medicine
DX: R79.89 Other specified abnormal findings of blood chemistry (principal); E78.00 Pure hypercholesterolemia, unspecified; N28.9 Disorder of kidney and ureter, unspecified
CPT/HCPCS: 99442

== ENCOUNTER 2024-12-30 10:31 | Outpatient (REF) | payer MEDICARE, SELFPAY ==
[2024-12-30 14:41] LABS: Anion Gap 10 (12-20); Blood Urea Nitrogen 27 mg/dL (9-16); Calcium 9.3 mg/dL (8.4-10.2); Carbon Dioxide 26 mmol/L (22-29); Chloride 108 mmol/L (96-108); Estimated Glomerular Filt Rate 39; Glucose Random 77 mg/dL (60-115); Potassium 4.1 mmol/L (3.3-5.1); Sodium 140 mmol/L (135-145)
[2024-12-30 14:58] LABS: Free T4 (Free Thyroxine) 0.97 ng/dL (0.71-1.85); Thyroid Stimulating Hormone 2.86 uIU/mL (0.32-4.0)
[2024-12-31 05:03] LABS: Triiodothyronine T3 Total 96 ng/dL (76-181)
== END 2024-12-30 10:32 | disposition home or self-care (01) ==
LOC: HO.WFDLDS 10:31
PROVIDERS: Visit Provider Family Medicine
DX: Z00.00 Encounter for general adult medical examination without abnormal findings (principal); E03.9 Hypothyroidism, unspecified; N28.9 Disorder of kidney and ureter, unspecified; R79.89 Other specified abnormal findings of blood chemistry
CPT/HCPCS: 36415; 80048; 84439; 84443; 84480

== ENCOUNTER 2025-01-05 11:29 | Outpatient (REF) | payer MEDICARE, SELFPAY ==
[2025-01-05 15:31] LABS: Microalbum/Creatinine Ratio Ur 30.3 ug/mg cr (<30)
== END 2025-01-05 11:30 | disposition home or self-care (01) ==
LOC: HO.LNP 11:29
PROVIDERS: PCP Family Medicine; Visit Provider Family Medicine
DX: I10 Essential (primary) hypertension (principal); N28.9 Disorder of kidney and ureter, unspecified; R41.3 Other amnesia
CPT/HCPCS: 82043; 82570; 99212

== ENCOUNTER 2025-01-05 11:29 | Outpatient (AMB) | payer MEDICARE, SELFPAY ==
--- NOTE | 2025-01-05 12:18 | A.OFFPC_ITS ---
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 Allergies clindamycin [From Cleocin] Allergy (Verified 05/22/24 12:56) colitis hydromorphone [From Dilaudid] Allergy (Verified 05/22/24 12:56) apnea midazolam [From Versed] Allergy (Verified 05/22/24 12:56) rapid pulse Penicillins Allergy (Verified 05/22/24 12:56) Hives Sulfa (Sulfonamide Antibiotics) Allergy (Verified 05/22/24 12:56) rash NSAIDS (Non-Steroidal Anti-Inflamma Adverse Reaction (Verified 05/22/24 12:56) gi issues BACTRIM Adverse Reaction (Severe, Uncoded 05/01/24 11:38) Rash, ABD PAIN Tobacco use date assessed: 05/01/24 Dental Screening Dental Screen Date: 05/01/24 HPI f/u elevated tsh, labs HPI Details 84 y/o female presents to f/u elevated T SH, labs. Labs drawn 12/30/24. Reviewed labs with pt. TSH improved from 4.20 to 2.86. Ongoing renal insufficiency. Creatinine level 1.29, BUN 27 mg/dL. Estimated GFR 39. She notes she has only been taking metoprolol 12.5 mg once a day. She reports memory changes. Also notes some aphasia/difficulty communicating. [facility] Surgical History History of lobectomy of lung History of hip replacement (~2009) Social History Housing: Condominium Patient Tobacco Use Status: Former Tobacco user Tobacco use type: Cigarette Cigarette Packs Per Day: 1 Years Smoked: 40 e-Cigarette/Vaping Use: Never Used Second Hand Smoke Exposure: No service: No Current occupational status: retired Current occupational exposures/hazards: No Cognitive needs: No Hearing needs: No Vision needs: No Questionnaire Thrive Questionnaire Date Thrive assessed: 05/01/24 MARIANN-7 AMB Questionnaire MARIANN-7 Date MARIANN - 7 assessed: 05/01/24 Source: Developed by Drs. Db Eric, Winifred Cardoso, Allan Talamantes and colleagues, with an educational astrid from [employer]. Review of Systems Const Denies chills, Denies fatigue, Denies fever(s), Denies headache(s) and Denies weakness ENT Denies dizziness and Denies headache(s) Card Denies chest pain, Denies lightheadedness, Denies dyspnea and Denies other (Palpitations) Resp Denies cough, Denies dyspnea, Denies wheezing and Denies other ( shortness of br eath) Musc Denies numbness and Denies tingling Neuro Denies dizziness, Denies headache(s), Denies numbness, Denies tingling, Denies paresthesias and Denies weakness Psych Denies anxiety and Denies depression Endo Denies fatigue Aller/Immun Denies wheezing Physical exam (Primary Care) Vital Signs: Last Vital Signs Temp 97.9 F 01/05/25 12:22 Pulse 80 01/05/25 12:22 Resp 16 01/05/25 12:22 BP 120/70 01/05/25 12:22 Pulse Ox 99 01/05/25 12:22 Oxygen Delivery Method Room Air 01/05/25 12:22 BMI result Body Mass Index 19.8 Tobacco/Smoking Status: Tobacco use Status Tobacco use date assessed 05/01/24 01/05/25 12:20 Patient Tobacco Use Status Former Tobacco user 01/05/25 12:20 Tobacco use type Cigarette 01/05/25 12:20 e-Cigarette/Vaping Use Never Used 01/05/25 12:20 Thrive Assessment: Date of Thrive Assessment Date Thrive assessed 05/01/24 01/05/25 12:20 Const General: no acute distress and well developed Nutritional Appearance: well nourished Orientation/consciousness: patient oriented x3 HENMT Head: Yes normocephalic and Yes atraumatic Eyes General: appearance normal, both eyes and all related structures Pupils: Equal, round and reactive pupils present EOM: EOMs intact bilaterally Resp Effort & Inspection: normal respiratory effort Auscultation: clear to auscultation bilaterally Cardio Rate: regular rate Rhythm: regular rhythm Heart sounds: S1 normal heart sound present, S2 normal heart sound present, no gallops, no murmurs and no rubs Neuro General: patient oriented x3 and gait normal Cranial nerves: Yes Equal, round and reactive pupils present Psych Affect: normal affect Coding Level of Care Code Est Pt Level 4 (47992) Diagnoses Elevated TSH R79.89 Renal insufficiency N28.9 Essential hypertension I10 Memory changes R41.3 Assessment & Plan Assessment & Plan (1) Elevated TSH: Code(s): R79.89 - Other specified abnormal findings of blood chemistry Category: Medical Plan: Patient?had?mild?transient?TSH?elevation?which?has?resolved (2) Renal insufficiency: Code(s): N28.9 - Disorder of kidney and ureter, unspecified Category: Medical Plan: Decreased?estimated?GFR?though?creatinine?level?is?okay Increase?hydration Will?monitor (3) Essential hypertension: Code(s): I10 - Essential (primary) hypertension Category: Medical Plan: Blood?pressure?is?controlled.??Goal?is?less?than?130/80 Continue?current?medications (4) Memory changes: Code(s): R41.3 - Other amnesia Category: Medical Plan: Some?memory?and?word-finding?difficulties. Patient?declines?referral She?will?let?know?if?she?continues?to?have?problems?or?increasing?concerns. Orders: Orders Complete Blood Count Auto Diff Today Z00.00 - Encounter for general adult medical examination without abnormal findings Microalbumin, Random (w Creat) Today I10 - Essential (primary) hypertension Lipid Panel Today Z00.00 - Encounter for general adult medical examination without abnormal findings TSH reflex Free T4 Today Z00.00 - Encounter for general adult medical examination without abnormal findings Comprehensive Warriormine. Panel Fast Today Z00.00 - Encounter for general adult medical examination without abnormal findings UA and rflx microscopic Today Z00.00 - Encounter for general adult medical examination without abnormal findings Medications: Changed From metoprolol tartrate 12.5 mg (1/2 x 25 mg) PO BID 90 days 90 tabs 0RF To metoprolol tartrate 12.5 mg (1/2 x 25 mg) PO QAM 90 days 45 tabs 3RF
[2025-01-05 12:22] VITALS: BP 120/70; PULSE 80; RESP 16; TEMP 36.6; O2SAT 99; BMI 19.8
== END 2025-01-05 13:00 | disposition home or self-care (01) ==
PROVIDERS: PCP Family Medicine; Visit Provider Family Medicine
DX: R79.89 Other specified abnormal findings of blood chemistry (principal); N28.9 Disorder of kidney and ureter, unspecified; I10 Essential (primary) hypertension; R41.3 Other amnesia

== ENCOUNTER 2025-02-02 13:32 | Outpatient (AMB) | payer MEDICARE, SELFPAY ==
--- NOTE | 2025-02-02 13:36 | A.OFFPC_ITS ---
Vital Signs 02/02/25 13:40 02/02/25 14:28 Height 5 ft 6 in Weight 123 lb BMI 19.9 BP 171/70 H 154/70 H Blood Pressure Location Rt brachial Rt brachial Position Sitting Sitting Respiration 16 Pulse 78 Pulse Source Pulse Oximeter Temp 98.3 F Temp Source Oral Pulse Oximetry (%) 99 Oxygen Delivery Method Room Air Intake Visit Reasons: Itchy/mottled skin Intake Note: patient here c/o itchy blotchy skin all over her body. 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: No Is last menstrual period known: No Post menopausal: No Patient : No Allergies clindamycin [From Cleocin] Allergy (Verified 02/02/25 14:26) colitis hydromorphone [From Dilaudid] Allergy (Verified 02/02/25 14:26) apnea midazolam [From Versed] Allergy (Verified 02/02/25 14:26) rapid pulse Penicillins Allergy (Verified 02/02/25 14:26) Hives Sulfa (Sulfonamide Antibiotics) Allergy (Verified 02/02/25 14:26) rash NSAIDS (Non-Steroidal Anti-Inflamma Adverse Reaction (Verified 02/02/25 14:26) gi issues BACTRIM Adverse Reaction (Severe, Uncoded 02/02/25 14:26) Rash, ABD PAIN Tobacco use date assessed: 02/02/25 Fall risk assessment: No Falls in past year Last assessed Fall Risk: 02/02/25 Dental Screening Dental Screen Date: 02/02/25 Did you have a dental visit in the last 12 months?: Yes Did you have a dental problem in the last 6 months where you did not have access to dental care?: No Was dental information given to patient?: Patient has dentist HPI HPI Comments History of Present Illness Details 84-year-old female present with complain ts of red, blotchy skin rash to her trunk, upper and lower arms, and BLE. She notes associated intermittent mild, itching. She notes that rash started 3 weeks ago after her metoprolol was substituted from pink to white by the pharmacy. She denies new diet, detergent, or body products in the last 3 weeks. Yesterday, she applied Benadryl cream to the rash without improvement. She has history of severe drowsiness to 1st generation antihistamines. She notes that she checks her blood pressure 3 time weekly and usually in the 1202/80s. [facility] Surgical History History of lobectomy of lung History of hip replacement (~2009) Social History Housing: Condominium Patient Tobacco Use Status: Former Tobacco user Tobacco use type: Cigarette Cigarette Packs Per Day: 1 Years Smoked: 40 e-Cigarette/Vaping Use: Never Used Second Hand Smoke Exposure: No service: No Current occupational status: retired Current occupational exposures/hazards: No Cognitive needs: No Hearing needs: No Vision needs: No Questionnaire PHQ-9 Over the last 2 weeks, how often have you been bothered by any of the following problems? 1. Little interest or pleasure in doing things: not at all 2. Feeling down, depressed, or hopeless: not at all 3. Trouble falling or staying asleep, or sleeping too much: not at all 4. Feeling tired or having little energy: not at all Source: Developed by Drs. Db Eric, Winifred Cardoso, Allan Talamantes and colleagues, with an educational astrid from [employer]. Thrive Questionnaire Date Thrive assessed: 02/02/25 I am a: Patient What is your living situation today?: I have a steady place to live Within the past 12 months, did the food you bought not last and you didn't have the money to get more?: Never true Within the past 12 months, did you worry whether your food would run out before you got money to buy more?: Never true Do you have trouble paying for medicines?: No Do you have trouble paying your heating and electricity bill?: No Do you have trouble taking care of your child, family member or friend?: No Do you have trouble with day-to-day activities such as bathing, preparing meals, shopping, managing finances, etc.?: No Are you currently unemployed and looking for a job?: No Are you interested in more education?: No Please select the resources that you would like help with: None Currently or been in a relationship where the following occur: No concerns reported THRIVE Score: 0 AUDIT C Alcohol Use Questionnaire (AUDIT-C) 1. How often do you have a drink containing alcohol?: Monthly or less 2. How many drinks containing alcohol do you have on a typical day when you are drinking?: 1 or 2 3. How often do you have six or more drinks on one occasion?: Never Total Score: 1 MARIANN-7 AMB Questionnaire MARIANN-7 Date MARIANN - 7 assessed: 05/01/24 Feeling nervous, anxious, or on edge: 0 = Not at all Not being able to stop or control worryin = Not at all Worrying too much about different things: 0 = Not at all Trouble relaxin = Not at all Being so restless that it is hard to sit still: 1 = Several days Feeling afraid as if something awful might happen: 0 = Not at all Source: Developed by Drs. Db Eric, Winifred Cardoso, Allan Talamantes and colleagues, with an educational astrid from [employer]. Review of Systems Const Details: Const Denies chills, Denies fatigue, Denies fever(s), Denies headache(s) and Denies weakness ENT Denies dizziness and Denies headache(s) Card Denies chest pain, Denies lightheadedness, Denies dyspnea and Denies other (Palpitations) Resp Denies cough, Denies dyspnea, Denies wheezing and Denies other ( shortness of breath) GI Denies abdominal pain, Denies melena, Denies hematochezia, Denies change in bowel habits, Denies dyspepsia and Denies nausea Denies hematuria and Denies dysuria Musc Denies abnormal gait, Denies myalgias, Denies arthralgias, Denies numbness and Denies tingling Skin/Breast Reports as per HPI Neuro Denies abnormal gait, Denies dizziness, Denies headache(s), Denies memory loss, Denies numbness, Denies Sensory deficit (Neuro), Denies tingling and Denies weakness Psych Denies anxiety, Denies depression, Denies memory loss Endo Denies cold intolerance, Denies fatigue, Denies heat intolerance, Denies polydipsia and Denies polyuria Aller/Immun Denies wheezing Physical exam (Primary Care) Vital Signs: Last Vital Signs Temp 98.3 F 02/02/25 13:40 Pulse 78 02/02/25 13:40 Resp 16 02/02/25 13:40 BP 171/70 H 02/02/25 13:40 Pulse Ox 99 02/02/25 13:40 Oxygen Delivery Method Room Air 02/02/25 13:40 BMI result Body Mass Index 19.9 Tobacco/Smoking Status: Tobacco use Status Tobacco use date assessed 02/02/25 02/02/25 13:44 Patient Tobacco Use Status Former Tobacco user 02/02/25 13:38 Tobacco use type Cigarette 02/02/25 13:38 e-Cigarette/Vaping Use Never Used 02/02/25 13:38 Thrive Assessment: Date of Thrive Assessment Date Thrive assessed 02/02/25 02/02/25 13:38 Currently or been in a relationship where the following occur: No concerns reported Const Other: General: no acute distress and well developed Nutritional Appearance: well nourished Orientation/consciousness: patient oriented x3 HENMT Head: Yes normocephalic and Yes atraumatic Eyes General: appearance normal, both eyes and all related structures Pupils: Equal, round and reactive pupils present EOM: EOMs intact bilaterally Resp Effort & Inspection: normal respiratory effort Auscultation: clear to auscultation bilaterally Cardio Rate: regular rate Rhythm: regular rhythm Heart sounds: S1 normal heart sound present, S2 normal heart sound present, no gallops, no murmurs and no rubs GI Palpation (GI): No Abdominal aortic bruit present, Soft to palpation, nontender, No hepatosplenomegaly present and No Rebound tenderness present Auscultation: normal bowel sounds General: Yes no CVA tenderness Back/Spine/Pelvis Back: no CVA tenderness Cervical Spine: cervical ROM normal and No Cervical spine tenderness Thoracic/Lumbar Spine: thoraco-lumbar ROM normal, No pain with thoraco-lumbar ROM, No thoracic spinal tenderness and No lumbar spinal tenderness Extrem General: Yes normal to inspection, No edema and No calf tenderness Skin General: warm and dry. Normal skin color. Normal skin turgor Lesions: no lesions Rashes: Nonraised reticular rash to her trunk, arms, and lower extremities Trauma: no lacerations or abrasions Wounds: no wounds Nails: normal Neuro General: patient oriented x3, gait normal and no focal neuro deficit Cranial nerves: Yes Equal, round and reactive pupils present Cognition (Neuro): normal cognition Gait exam (Neuro): Normal gait present Sensory Exam: No Sensory deficit (Neuro) Psych Appearance: grossly normal Affect: normal affect Attitude: cooperative Thought process: Normal thought process present Coding Level of Care Code Est Pt Level 4 (03799) Diagnoses Rash R21 Essential hypertension I10 Assessment & Plan Assessment & Plan (1) Rash: Code(s): R21 - Rash and other nonspecific skin eruption Category: Medical Plan: Nonraised reticular rash to her trunk, arms, and lower extremities. Likely due to adverse reaction of her new metoprolol ingredients. Will reorder metoprolol with instructions to not substitute with generic. Prednisone 20 mg daily x3 days ordered; advised to take as prescribed. Instructed on the risks, benefits, and potential adverse reactions of the medication. May take second-generation antihistamine such as Claritin or Zyrtec once daily. Follow-up with PCP in 1 week or return sooner with worsening or new signs and symptoms. Verbalized understanding and agreed with treatment plan. Case consulted with patient's PCP, Dr. Gaffney. (2) Essential hypertension: Code(s): I10 - Essential (primary) hypertension Category: Medical Plan: Resting blood pressure is 154/70, above goal of less than 130/80. Her home blood pressure readings her within goal. Continue current treatment regimen. Low-sodium diet encouraged. Follow-up with PCP in 1 week. Verbalized understanding and agreed with the plan. Medications: New prednisone 20 mg PO DAILY 3 days 3 tabs 0RF Refilled metoprolol tartrate 12.5 mg (1/2 x 25 mg) PO QAM 90 days 45 tabs 3RF
[2025-02-02 13:40] VITALS: BP 171/70; PULSE 78; RESP 16; TEMP 36.8; O2SAT 99; BMI 19.9
[2025-02-02 14:28] VITALS: BP 154/70
== END 2025-02-02 14:50 | disposition home or self-care (01) ==
LOC: HO.HMCFM 13:33
PROVIDERS: PCP Family Medicine; Visit Provider Nurse Practitioner Family
DX: R21 Rash and other nonspecific skin eruption (principal); I10 Essential (primary) hypertension

== ENCOUNTER → 2025-02-02 13:32 | Outpatient (BNVA) | payer MEDICARE, SELFPAY | PROVIDERS: PCP Family Medicine; Visit Provider Nurse Practitioner Family | DX: R21 Rash and other nonspecific skin eruption (principal); I10 Essential (primary) hypertension | CPT/HCPCS: 99212 ==

== ENCOUNTER 2025-02-05 13:47 | Outpatient (AMB) | payer MEDICARE, SELFPAY ==
--- NOTE | 2025-02-05 14:15 | A.OFFPC_ITS ---
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 Allergies clindamycin [From Cleocin] Allergy (Verified 02/05/25 14:16) colitis hydromorphone [From Dilaudid] Allergy (Verified 02/05/25 14:16) apnea midazolam [From Versed] Allergy (Verified 02/05/25 14:16) rapid pulse Penicillins Allergy (Verified 02/05/25 14:16) Hives Sulfa (Sulfonamide Antibiotics) Allergy (Verified 02/05/25 14:16) rash NSAIDS (Non-Steroidal Anti-Inflamma Adverse Reaction (Verified 02/05/25 14:16) gi issues BACTRIM Adverse Reaction (Severe, Uncoded 02/02/25 14:26) Rash, ABD PAIN Tobacco use date assessed: 02/02/25 Dental Screening Dental Screen Date: 02/02/25 HPI f/u mottled rash HPI Details 84 y/o female presents today with compla ints of a rash. Had seen MT for this 02/02/25 - rash to trunks, arms lower extremities. He had noted it was most likely due to new metoprolol ingredients. He had reordered metoprolol to not substitute with generic. Was prescribed prednisone. She notes ongoing rash. [facility] Surgical History History of lobectomy of lung History of hip replacement (~2009) Social History Housing: Condominium Patient Tobacco Use Status: Former Tobacco user Tobacco use type: Cigarette Cigarette Packs Per Day: 1 Years Smoked: 40 e-Cigarette/Vaping Use: Never Used Second Hand Smoke Exposure: No service: No Current occupational status: retired Current occupational exposures/hazards: No Cognitive needs: No Hearing needs: No Vision needs: No Questionnaire PHQ-9 Over the last 2 weeks, how often have you been bothered by any of the following problems? 5. Poor appetite or overeating: not at all 6. Feeling bad about yourself - or that you are a failure or have let yourself or your family down: not at all 7. Trouble concentrating on things, such as reading the newspaper or watching television: not at all 8. Moving or speaking so slowly that other people could have noticed. Or the opposite - being so fidgety or restless that you have been moving around a lot more than usual: not at all 9. Thoughts that you would be better off or of hurting yourself in some way: not at all Source: Developed by Drs. Db Eric, Winifred Cardoso, Allan Talamantes and colleagues, with an educational astrid from [employer]. Thrive Questionnaire Date Thrive assessed: 02/02/25 I am a: Patient What is your living situation today?: I have a steady place to live Within the past 12 months, did the food you bought not last and you didn't have the money to get more?: Never true Within the past 12 months, did you worry whether your food would run out before you got money to buy more?: Never true Do you have trouble paying for medicines?: No Do you have trouble getting transportation to medical appointments?: No Do you have trouble paying your heating and electricity bill?: No Do you have trouble taking care of your child, family member or friend?: No Do you have trouble with day-to-day activities such as bathing, preparing meals, shopping, managing finances, etc.?: No Are you currently unemployed and looking for a job?: No Are you interested in more education?: No Please select the resources that you would like help with: None Currently or been in a relationship where the following occur: No concerns reported THRIVE Score: 0 MARIANN-7 AMB Questionnaire MARIANN-7 Date MARIANN - 7 assessed: 05/01/24 Becoming easily annoyed or irritable: 2 = More than half the days Source: Developed by Drs. Db Eric, Winifred Cardoso, Allan Talamantes and colleagues, with an educational astrid from [employer]. Review of Systems Const Denies chills, Denies fatigue, Denies fever(s), Denies headache(s) and Denies weakness ENT Denies dizziness and Denies headache(s) Card Denies chest pain, Denies lightheadedness, Denies dyspnea and Denies other (Palpitations) Resp Denies cough, Denies dyspnea, Denies wheezing and Denies other ( shortness of breath) Musc Denies numbness and Denies tingling Skin/Breast Reports rash Neuro Denies dizziness, Denies headache(s), Denies numbness, Denies tingling, Denies paresthesias and Denies weakness Psych Denies anxiety and Denies depression Endo Denies fatigue Aller/Immun Denies wheezing Physical exam (Primary Care) Vital Signs: Last Vital Signs Temp 98.3 F 02/05/25 14:18 Pulse 88 02/05/25 14:18 Resp 16 02/05/25 14:18 BP 138/70 02/05/25 14:18 Pulse Ox 99 02/05/25 14:18 Oxygen Delivery Method Room Air 02/05/25 14:18 BMI result Body Mass Index 20.0 Tobacco/Smoking Status: Tobacco use Status Tobacco use date assessed 02/02/25 02/05/25 14:22 Patient Tobacco Use Status Former Tobacco user 02/05/25 14:22 Tobacco use type Cigarette 02/05/25 14:22 e-Cigarette/Vaping Use Never Used 02/05/25 14:22 Thrive Assessment: Date of Thrive Assessment Date Thrive assessed 02/02/25 02/05/25 14:22 Currently or been in a relationship where the following occur: No concerns reported Const General: no acute distress and well developed Nutritional Appearance: well nourished Orientation/consciousness: patient oriented x3 [facility] Head: Yes normocephalic and Yes atraumatic Eyes General: appearance normal, both eyes and all related structures Pupils: Equal, round and reactive pupils present EOM: EOMs intact bilaterally Resp Effort & Inspection: normal respiratory effort Auscultation: clear to auscultation bilaterally Cardio Rate: regular rate Rhythm: regular rhythm Heart sounds: S1 normal heart sound present, S2 normal heart sound present, no gallops, no murmurs and no rubs Neuro General: patient oriented x3 and gait normal Cranial nerves: Yes Equal, round and reactive pupils present Psych Affect: normal affect Coding Level of Care Code Est Pt Level 3 (09794) Diagnoses Rash R21 Essential hypertension I10 Assessment & Plan Assessment & Plan (1) Rash: Code(s): R21 - Rash and other nonspecific skin eruption Category: Medical Plan: Reticular?pattern?rash?on?bilateral?anterior?forearms. Patient?only?notes?change?in?her?metoprolol?generic?medication?which?changed?col lar. Pharmacist?says?th at?the?only?difference?between?her?old?pink?pills?in?the?new?weight?pills?is?pin k?dye?which?is?now?removed?but?there?are?no added?fillers?or ?medication?that?are?different. Nevertheless,?patient?would ?like?to?try?another?medication.??Will?switch?to?bisoprolol. She?will?take?1/2?tablet?2.5?mg?closed.??And?if?blood?pressures?are?still?high?s he?will?take?2nd half. I?am?referring?dermatology?follow-up?on?rash?but she?was?prescribed?prednisone?which?she?has?not?tried?yet.??She?can?try?this?whi le?awaiting?referral?to?Dermatology. (2) Essential hypertension: Code(s): I10 - Essential (primary) hypertension Category: Medical Plan: As Above Orders: Referrals Dermatology Referral R21 - Rash and other nonspecific skin eruption Medications: New bisoprolol fumarate 2.5 mg (1/2 x 5 mg) PO DAILY 15 tabs 2RF 30 days Discontinued metoprolol tartrate Discontinued Reason: Doctor's Order 12.5 mg (1/2 x 25 mg) PO QAM 90 days 45 tabs 3RF
[2025-02-05 14:18] VITALS: BP 138/70; PULSE 88; RESP 16; TEMP 36.8; O2SAT 99
== END 2025-02-05 15:01 | disposition home or self-care (01) ==
LOC: HO.HMCFM 13:48
PROVIDERS: PCP Family Medicine; Visit Provider Family Medicine
DX: R21 Rash and other nonspecific skin eruption (principal); I10 Essential (primary) hypertension

== ENCOUNTER → 2025-02-05 13:47 | Outpatient (BNVA) | payer MEDICARE, SELFPAY | PROVIDERS: PCP Family Medicine; Visit Provider Family Medicine | DX: R21 Rash and other nonspecific skin eruption (principal); I10 Essential (primary) hypertension | CPT/HCPCS: 99212 ==

== ENCOUNTER 2025-02-23 14:50 | Outpatient (AMB) | payer MEDICARE, SELFPAY ==
--- NOTE | 2025-02-23 14:54 | MHC.PC.OV ---
Vital Signs 02/23/25 15:01 Height 5 ft 6 in Weight 122 lb BMI 19.7 BP 130/64 Blood Pressure Location Rt brachial Position Sitting Respiration 16 Pulse 89 Pulse Source Pulse Oximeter Temp 97.7 F Temp Source Oral Pulse Oximetry (%) 99 Oxygen Delivery Method Room Air Intake Visit Reasons: Dr. 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 Allergies clindamycin [From Cleocin] Allergy (Verified 02/23/25 14:56) colitis hydromorphone [From Dilaudid] Allergy (Verified 02/23/25 14:56) apnea midazolam [From Versed] Allergy (Verified 02/23/25 14:56) rapid pulse Penicillins Allergy (Verified 02/23/25 14:56) Hives Sulfa (Sulfonamide Antibiotics) Allergy (Verified 02/23/25 14:56) rash NSAIDS (Non-Steroidal Anti-Inflamma Adverse Reaction (Verified 02/23/25 14:56) gi issues BACTRIM Adverse Reaction (Severe, Uncoded 02/02/25 14:26) Rash, ABD PAIN Medication List - Last Reconciled 02/23/25 by Warren Gaffney MD amlodipine 5 mg PO DAILY 30 days aspirin 81 mg PO DAILY 90 days bisoprolol fumarate 2.5 mg (1/2 x 5 mg) PO DAILY 30 days estradiol 0.01%(0.1mg/gram) grams vaginal L.acidoph,paracasei,B.animalis (Digestive Advantage Advanced Probiotic) cells PO DAILY prednisone 20 mg PO DAILY 3 days Tobacco use date assessed: 02/23/25 Fall risk assessment: No Falls in past year Dental Screening Did you have a dental visit in the last 12 months?: Yes Did you have a dental problem in the last 6 months where you did not have access to dental care?: No Was dental information given to patient?: Yes HPI Dr. Amanuel medrano rash and HTN HPI Details 84 y/o female presents to f/u rash, blood pressure. Had changed metoprolol to bisoprolol. Had given her prednisone for her rash on bilateral anterior forearms. Had made referral to dermatology. Blood pressure today 130/64, 89p. She notes she had been unable to to tolerate bisoprolol due to shortness of breath. She notes rash has been improving. 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) Social History Housing: Condominium Patient Tobacco Use Status: Former Tobacco user Tobacco use type: Cigarette Cigarette Packs Per Day: 1 Years Smoked: 40 e-Cigarette/Vaping Use: Never Used Second Hand Smoke Exposure: No service: No Current occupational status: retired Current occupational exposures/hazards: No Cognitive needs: No Hearing needs: No Vision needs: No Questionnaire Thrive Questionnaire Date Thrive assessed: 02/23/25 What is your living situation today?: I have a place to live, but I am worried about losing it in the future THRIVE Score: 1 MARIANN-7 AMB Questionnaire MARIANN-7 Date MARIANN - 7 assessed: 05/01/24 Source: Developed by Drs. Db Eric, Winifred Cardoso, Allan Talamantes and colleagues, with an educational astrid from [employer]. Review of Systems Const Denies chills, Denies fatigue, Denies fever(s), Denies headache(s) and Denies weakness ENT Denies dizziness and Denies headache(s) Card Denies dyspnea Resp Denies cough, Denies dyspnea, Denies wheezing and Denies other (shortness of breath) Musc Denies numbness and Denies tingling Skin/Breast Reports rash Neuro Denies dizziness, Denies headache(s), Denies numbness, Denies tingling and Denies weakness Psych Denies anxiety and Denies depression Endo Denies fatigue Aller/Immun Denies wheezing Physical exam (Primary Care) Vital Signs: Last Vital Signs Temp 97.7 F 02/23/25 15:01 Pulse 89 02/23/25 15:01 Resp 16 02/23/25 15:01 BP 130/64 02/23/25 15:01 Pulse Ox 999 H 02/23/25 15:01 BMI result Body Mass Index 19.7 Tobacco/Smoking Status: Tobacco use Status Tobacco use date assessed 02/23/25 02/23/25 15:03 Patient Tobacco Use Status Former Tobacco user 02/23/25 15:03 Tobacco use type Cigarette 02/23/25 15:03 e-Cigarette/Vaping Use Never Used 02/23/25 15:03 Thrive Assessment: Date of Thrive Assessment Date Thrive assessed 02/23/25 02/23/25 15:03 Const General: well developed; No acute distress Nutritional Appearance: well nourished Orientation/consciousness: patient oriented x3 [facility] Head: Yes normocephalic and Yes atraumatic Eyes General: appearance normal, both eyes and all related structures Pupils: Equal, round and reactive pupils present EOM: EOMs intact bilaterally Resp Effort & Inspection: normal respiratory effort Auscultation: clear to auscultation bilaterally Cardio Rate: regular rate Rhythm: regular rhythm Heart sounds: S1 normal heart sound present, S2 normal heart sound present, no gallops, no murmurs and no rubs Neuro General: patient oriented x3 and gait normal Cranial nerves: Yes Equal, round and reactive pupils present Psych Affect: normal affect Coding Level of Care Code Est Pt Level 3 (48914) Diagnoses Essential hypertension I10 Rash R21 Assessment & Plan Assessment & Plan (1) Essential hypertension: Code(s): I10 - Essential (primary) hypertension Category: Medical Plan: Blood?pressure?is?controlled.??Goal?is?less?130/80 She?is?on?amlodipine?and?is?using?metoprolol?again. Continue?current?medication?regimen (2) Rash: Code(s): R21 - Rash and other nonspecific skin eruption Category: Medical Plan: Improved?though?not?fully?resolved. She?notes?that?it?improved?significantly?with?prednisone.??Did?not?improved?significantly?with?discontinuing?metoprolol. She?also?notes?that?in?locations?where?she?has?used a?moisturizing?cream?such?as?Eucerin,?that?rash?was?essentially?resolved?location. Has?tried?Zyrtec?in?Clar[place]?as?well?as?Benadryl?with?adverse?effects. Will?try?Lorena - discontinue?if?adverse?effects. Will?give?her?a?script?for?prednisone?20?mg?daily?x4?days?which?she?will?begin?if?rash?becomes?worse?again. She?has?an?appointment?with?dermatology?a?few?weeks. Go?to?ED?if?any?swelling?in?mouth?or?tongue?or?throat. Medications: Changed From prednisone 20 mg PO DAILY 3 days 3 tabs 0RF To prednisone 20 mg PO DAILY 4 tabs 0RF 4 days Refilled metoprolol tartrate 12.5 mg (1/2 x 25 mg) PO QAM 45 tabs 3RF 90 days Discontinued bisoprolol fumarate Discontinued Reason: Doctor's Order 2.5 mg (1/2 x 5 mg) PO DAILY 30 days 15 tabs 2RF
[2025-02-23 15:01] VITALS: BP 130/64; PULSE 89; RESP 16; TEMP 36.5; O2SAT 99; BMI 19.7
== END 2025-02-23 15:40 | disposition home or self-care (01) ==
LOC: HO.HMCFM 14:50
PROVIDERS: PCP Family Medicine; Visit Provider Family Medicine
DX: I10 Essential (primary) hypertension (principal); R21 Rash and other nonspecific skin eruption

== ENCOUNTER → 2025-02-23 14:50 | Outpatient (BNVA) | payer MEDICARE, SELFPAY | PROVIDERS: PCP Family Medicine; Visit Provider Family Medicine | DX: I10 Essential (primary) hypertension (principal); R21 Rash and other nonspecific skin eruption | CPT/HCPCS: 99212 ==

== ENCOUNTER 2025-03-23 10:51 | Outpatient (AMB) | payer MEDICARE, SELFPAY ==
--- NOTE | 2025-03-23 10:57 | MHC.PC.OV ---
Vital Signs 03/23/25 11:04 Height 5 ft 6 in Weight 119 lb 2 oz BMI 19.2 BP 122/68 Blood Pressure Location Rt brachial Position Sitting Pulse 60 Pulse Source Pulse Oximeter Temp 98.7 F Temp Source Temporal Artery Scan Pulse Oximetry (%) 98 Oxygen Delivery Method Room Air Intake Visit Reasons: discuss medication Intake Note: Tika presents in the office today to discuss her medication. Patient's entire body is covered in a rash that sr. Allergies clindamycin [From Cleocin] Allergy (Verified 03/23/25 11:00) colitis hydromorphone [From Dilaudid] Allergy (Verified 03/23/25 11:00) apnea midazolam [From Versed] Allergy (Verified 03/23/25 11:00) rapid pulse Penicillins Allergy (Verified 03/23/25 11:00) Hives Sulfa (Sulfonamide Antibiotics) Allergy (Verified 03/23/25 11:00) rash NSAIDS (Non-Steroidal Anti-Inflamma Adverse Reaction (Verified 03/23/25 11:00) gi issues losartan Allergy (Intermediate, Uncoded 03/23/25 11:53) hives BACTRIM Adverse Reaction (Severe, Uncoded 03/23/25 11:00) Rash, ABD PAIN Tobacco use date assessed: 03/23/25 Fall risk assessment: No Falls in past year Last assessed Fall Risk: 03/23/25 Dental Screening Dental Screen Date: 03/23/25 Did you have a dental visit in the last 12 months?: Yes Did you have a dental problem in the last 6 months where you did not have access to dental care?: No Was dental information given to patient?: Patient has dentist HPI discuss medication HPI Details 84 y/o female presents to f/u chronic conditions. Pt reports a rash today - on arms and torso. She questions whether or not it could be her meds. She follows up with dermatology. BP today 122/68, 60p. Hx of TIA. 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) Social History (Updated 03/23/25 @ 11:03 by Chio Santos MA) Housing: Condominium Alcohol intake: current Patient Tobacco Use Status: Former Tobacco user Tobacco use type: Cigarette Cigarette Packs Per Day: 1 Years Smoked: 40 Packs Per Year: 40 e-Cigarette/Vaping Use: Never Used Second Hand Smoke Exposure: No Use of substances other than those prescribed or required for medical reasons: No service: No Current occupational status: retired Current occupational exposures/hazards: No Cognitive needs: No Hearing needs: No Vision needs: No Questionnaire Thrive Questionnaire Date Thrive assessed: 02/02/25 I am a: Patient What is your living situation today?: I have a steady place to live Within the past 12 months, did the food you bought not last and you didn't have the money to get more?: Never true Within the past 12 months, did you worry whether your food would run out before you got money to buy more?: Never true Do you have trouble paying for medicines?: No Do you have trouble getting transportation to medical appointments?: No Do you have trouble paying your heating and electricity bill?: No Do you have trouble taking care of your child, family member or friend?: No Do you have trouble with day-to-day activities such as bathing, preparing meals, shopping, managing finances, etc.?: No Are you currently unemployed and looking for a job?: No Are you interested in more education?: No Please select the resources that you would like help with: None Currently or been in a relationship where the following occur: No concerns reported THRIVE Score: 0 MARIANN-7 AMB Questionnaire MARIANN-7 Date MARIANN - 7 assessed: 05/01/24 Source: Developed by Drs. Db Eric, Winifred Cardoso, Allan Talamantes and colleagues, with an educational astrid from [employer]. Review of Systems Const Denies chills, Denies fatigue, Denies fever(s), Denies headache(s) and Denies weakness ENT Denies dizziness and Denies headache(s) Card Denies dyspnea Resp Denies cough, Denies dyspnea, Denies wheezing and Denies other (shortness of breath) Musc Denies numbness and Denies tingling Neuro Denies dizziness, Denies headache(s), Denies numbness, Denies tingling and Denies weakness Psych Denies anxiety and Denies depression Endo Denies fatigue Aller/Immun Denies wheezing Physical exam (Primary Care) Vital Signs: Last Vital Signs Temp 98.7 F 03/23/25 11:04 Pulse 60 03/23/25 11:04 BP 122/68 03/23/25 11:04 Pulse Ox 98 03/23/25 11:04 Oxygen Delivery Method Room Air 03/23/25 11:04 BMI result Body Mass Index 19.2 Tobacco/Smoking Status: Tobacco use Status Tobacco use date assessed 03/23/25 03/23/25 11:07 Patient Tobacco Use Status Former Tobacco user 03/23/25 11:03 Tobacco use type Cigarette 03/23/25 11:03 e-Cigarette/Vaping Use Never Used 03/23/25 11:03 Thrive Assessment: Date of Thrive Assessment Date Thrive assessed 02/02/25 03/23/25 10:59 Currently or been in a relationship where the following occur: No concerns reported Const General: well developed; No acute distress Nutritional Appearance: well nourished Orientation/consciousness: patient oriented x3 [facility] Head: Yes normocephalic and Yes atraumatic Eyes General: appearance normal, both eyes and all related structures Pupils: Equal, round and reactive pupils present EOM: EOMs intact bilaterally Resp Effort & Inspection: normal respiratory effort Neuro General: patient oriented x3 and gait normal Cranial nerves: Yes Equal, round and reactive pupils present Psych Affect: normal affect Coding Level of Care Code Est Pt Level 4 (66728) Diagnoses Rash R21 Allergy T78.40XA Essential hypertension I10 TIA (transient ischemic attack) G45.9 Nasal bleeding R04.0 Assessment & Plan Assessment & Plan (1) Rash: Code(s): R21 - Rash and other nonspecific skin eruption Category: Medical Plan: Ongoing?rash?on?arms?and?torso She?has?seen?dermatology?now.??I?do?not?have?dermatology?note?but?patient?says?she?has?had?a?punch?biopsy?which?shows?allergic?characteristics?but?can?not?rule?out?autoimmune?disorder. She?also?has?a?referral?to?immunology Still?working?on?decreasing trigger?or?exposure?though?this?has?not?been?discovered?yet. She?has?discontinued?essentially?all?of?her?medications?and?still?has?the?rash She?notes?that?if?worsens?with?karson?so?she?has?recently?discontinue?this?as?well Follow-up?with?Dermatology?and?immunology. May?need?a?referral?to?Rheumatology?based?on?their?findings. (2) Allergy: Code(s): T78.40XA - Allergy, unspecified, initial encounter Category: Medical Plan: As?above (3) Essential hypertension: Code(s): I10 - Essential (primary) hypertension Category: Medical Plan: Blood?pressures?are?well-controlled?despite?discontinuing?medication. Watch?salt/sodium?in?diet Hydrate?well?get?plenty?of?rest Will?continue?to?monitor (4) TIA (transient ischemic attack): Code(s): G45.9 - Transient cerebral ischemic attack, unspecified Category: Medical Plan: History?of?TIA?and?patient?had?been?on?aspirin However?he?has?had?multiple?profuse?nosebleeds?and?visits?to?the?emergency?department?and?ENT?to?treat?these. Discontinued?aspirin As?above?we?discussed?that?we?should?ensure?we?are?controlling?her?blood?pressure Patient?understands?that?risk?of?stroke?could?be?higher?without?aspirin (5) Nasal bleeding: Code(s): R04.0 - Epistaxis Category: Medical Plan: Nasal?bleeding?as?mentioned?above Follow-up?with?ENT Keep?mucous?membranes?moist Humidified?air?and?hydrate?well
[2025-03-23 11:04] VITALS: BP 122/68; PULSE 60; TEMP 37.1; O2SAT 98; BMI 19.2
== END 2025-03-23 13:53 | disposition home or self-care (01) ==
LOC: HO.HMCFM 10:52
PROVIDERS: PCP Family Medicine; Visit Provider Family Medicine
DX: R21 Rash and other nonspecific skin eruption (principal); T78.40XA Allergy, unspecified, initial encounter; I10 Essential (primary) hypertension; G45.9 Transient cerebral ischemic attack, unspecified; R04.0 Epistaxis

== ENCOUNTER → 2025-03-23 10:51 | Outpatient (BNVA) | payer MEDICARE, SELFPAY | PROVIDERS: PCP Family Medicine; Visit Provider Family Medicine | DX: R21 Rash and other nonspecific skin eruption (principal); T78.40XA Allergy, unspecified, initial encounter; I10 Essential (primary) hypertension; R04.0 Epistaxis; Z86.73 Personal history of transient ischemic attack (TIA), and cerebral infarction without residual deficits | CPT/HCPCS: 99212 ==

== ENCOUNTER 2025-04-23 11:11 | Outpatient (AMB) | payer MEDICARE, SELFPAY ==
--- NOTE | 2025-04-23 11:49 | A.OFFPC_ITS ---
Vital Signs 04/23/25 11:52 04/23/25 11:57 04/23/25 12:24 Height 5 ft 6 in Weight 121 lb 6 oz BMI 19.6 BP 180/90 H 170/80 H 190/80 H Blood Pressure Location Lt brachial Lt brachial Lt brachial Position Sitting Sitting Sitting Respiration 14 Pulse 102 H Pulse Source Pulse Oximeter Temp 97.7 F Temp Source Oral Pulse Oximetry (%) 98 Oxygen Delivery Method Room Air Intake Visit Reasons: f/u HTN, rash Intake Note: patient is scheduled for htn and rash Mutuel Teller Required: No Allergies clindamycin [From Cleocin] Allergy (Verified 04/23/25 11:51) colitis hydromorphone [From Dilaudid] Allergy (Verified 04/23/25 11:51) apnea midazolam [From Versed] Allergy (Verified 04/23/25 11:51) rapid pulse Penicillins Allergy (Verified 04/23/25 11:51) Hives Sulfa (Sulfonamide Antibiotics) Allergy (Verified 04/23/25 11:51) rash NSAIDS (Non-Steroidal Anti-Inflamma Adverse Reaction (Verified 04/23/25 11:51) gi issues losartan Allergy (Intermediate, Uncoded 03/23/25 11:53) hives BACTRIM Adverse Reaction (Severe, Uncoded 03/23/25 11:00) Rash, ABD PAIN Tobacco use date assessed: 03/23/25 Dental Screening Dental Screen Date: 03/23/25 HPI f/u HTN, rash HPI Details 84 y/o female presents to f/u hypertensi on and chronic conditions including a rash. BP today 170/80, 102p. She had discontinued her meds. Pt notes she is able to check her BP at home and blood pressure at home has been fine per pt. Pt had complaints of an ongoing rash on arms and torso. Pt reports rash has worsened. Has been following up with dermatology and pt feels nothing has been improving symptoms. [facility] Surgical History History of lobectomy of lung History of hip replacement (~2009) Social History (Updated 03/23/25 @ 11:03 by Chio Santos MA) Housing: Condominium Alcohol intake: current Patient Tobacco Use Status: Former Tobacco user Tobacco use type: Cigarette Cigarette Packs Per Day: 1 Years Smoked: 40 e-Cigarette/Vaping Use: Never Used Second Hand Smoke Exposure: No service: No Current occupational status: retired Current occupational exposures/hazards: No Cognitive needs: No Hearing needs: No Vision needs: No Questionnaire Thrive Questionnaire Date Thrive assessed: 02/02/25 I am a: Patient What is your living situation today?: I have a steady place to live Within the past 12 months, did the food you bought not last and you didn't have the money to get more?: Never true Within the past 12 months, did you worry whether your food would run out before you got money to buy more?: Never true Do you have trouble paying for medicines?: No Do you have trouble getting transportation to medical appointments?: No Do you have trouble paying your heating and electricity bill?: No Do you have trouble taking care of your child, family member or friend?: No Do you have trouble with day-to-day activities such as bathing, preparing meals, shopping, managing finances, etc.?: No Are you currently unemployed and looking for a job?: No Are you interested in more education?: No Please select the resources that you would like help with: None Currently or been in a relationship where the following occur: No concerns reported THRIVE Score: 0 MARIANN-7 AMB Questionnaire MARIANN-7 Date MARIANN - 7 assessed: 05/01/24 Source: Developed by Drs. Db Eric, Winifred Cardoso, Allan Talamantes and colleagues, with an educational astrid from [employer]. Review of Systems Const Denies chills, Denies fatigue, Denies fever(s), Denies headache(s) and Denies weakness ENT Denies dizziness and Denies headache(s) Card Denies dyspnea Resp Denies cough, Denies dyspnea, Denies wheezing and Denies other (shortness of breath) Musc Denies numbness and Denies tingling Neuro Denies dizziness, Denies headache(s), Denies numbness, Denies tingling and Denies weakness Psych Denies anxiety and Denies depression Endo Denies fatigue Aller/Immun Denies wheezing Physical exam (Primary Care) Vital Signs: Last Vital Signs Temp 97.7 F 04/23/25 11:52 Pulse 102 H 04/23/25 11:52 Resp 14 04/23/25 11:52 BP 170/80 H 04/23/25 11:57 Pulse Ox 98 04/23/25 11:52 Oxygen Delivery Method Room Air 04/23/25 11:52 BMI result Body Mass Index 19.6 Tobacco/Smoking Status: Tobacco use Status Tobacco use date assessed 03/23/25 04/23/25 11:49 Patient Tobacco Use Status Former Tobacco user 04/23/25 11:49 Tobacco use type Cigarette 04/23/25 11:49 e-Cigarette/Vaping Use Never Used 04/23/25 11:49 Thrive Assessment: Date of Thrive Assessment Date Thrive assessed 02/02/25 04/23/25 11:49 Currently or been in a relationship where the following occur: No concerns reported Const General: well developed; No acute distress Nutritional Appearance: well nourished Orientation/consciousness: patient oriented x3 HENMT Head: Yes normocephalic and Yes atraumatic Eyes General: appearance normal, both eyes and all related structures Pupils: Equal, round and reactive pupils present EOM: EOMs intact bilaterally Resp Effort & Inspection: normal respiratory effort Neuro General: patient oriented x3 and gait normal Cranial nerves: Yes Equal, round and reactive pupils present Psych Affect: normal affect Coding Level of Care Code Est Pt Level 4 (61084) Diagnoses Essential hypertension I10 White coat syndrome with diagnosis of hypertension I10 TIA (transient ischemic attack) G45.9 Rash R21 Swelling of lower extremity M79.89 Assessment & Plan Assessment & Plan (1) Essential hypertension: Code(s): I10 - Essential (primary) hypertension Category: Medical Plan: Blood?pressure?at?home?in?the?120s?over?80s 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 Likely?white?coat?syndrome She?will?let?me?know?if?blood?pressures?at?home?are?rising (2) White coat syndrome with diagnosis of hypertension: Code(s): I10 - Essential (primary) hypertension Category: Medical Plan: As above (3) TIA (transient ischemic attack): Code(s): G45.9 - Transient cerebral ischemic attack, unspecified Category: Medical Plan: Blood?pressures?at?home?are?at?goal?of?less?than?130/80 She?will?continue?to?monitor?at?home Had?also?been?on?an?aspirin?but?she?has?declined?this?and?understands?the?risks. (4) Rash: Code(s): R21 - Rash and other nonspecific skin eruption Category: Medical Plan: Ongoing?rash. Followed?by?dermatology Had?also?made?a?referral?to?immunology?but?she?has?not?made?an?appointment?yet. After?discussing?this?with?her?today?she?agrees?to?make?an?appointment. (5) Swelling of lower extremity: Code(s): M79.89 - Other specified soft tissue disorders Category: Medical Plan: Lower?extremity?edema?at?left?ankle She?has?varicosities?in?she?also?notes?that?she?was?playing?kickball?were?soccer ?with?her?grandchildren Likely?some?venous?insufficiency?combine?with?mild?swelling?from?kicking?a?ball. She?can?use?some?ice?on?her?ankle Elevate?leg
[2025-04-23 11:52] VITALS: BP 180/90; PULSE 102; RESP 14; TEMP 36.5; O2SAT 98; BMI 19.6
[2025-04-23 11:57] VITALS: BP 170/80
--- OUTSIDE RECORDS SUMMARY | 2025-04-23 12:15 | XMS_ITS | Data Portability ---
Author Organization [place] [facility], Allergy Address [address] [place] [address] Care Team Providers Care Emergency Response Coordinator Name Role Phone AIME MILLS Primary Care Provider Assessment Encounter Date Assessment Date Assessment LastModified by Organization Details LastModified Time 03/02/2025 03/02/2025 84-year-old female with hypertension which is controlled, on aspirin which she has since stopped presents for epistaxis for 4 days. She was in the emergency department on Saturday and had a nosebleed which resolved with Afrin. She is not actively bleeding now, but there is a small vessel noted anteriorly on her septum and she did agree to proceed with cautery and tolerated it well. We had a detailed discussion on nasal humidification with humidifier, saline sprays, saline jelly at night, applied to the outer nares and not with a Qtip. Using pressure and Afrin as needed for a nosebleed was discussed. [email or web address] Not available 03/02/2025 17:17:08 03/05/2025 03/05/2025 84-year-old female with well-controlled hypertension presents for reevaluation of right sided epistaxis. She discontinued her aspirin 1 week ago. She underwent nasal cautery [address] Negrete. Nasal exam demonstrates right anterior septum with 2 areas of scabbing. She is not actively bleeding. I placed Surgicel into the right nasal cavity and soaked with Afrin. We discussed that Surgicel is dissolvable and will fall out on its own. Reviewed supportive measures with preventative intranasal saline throughout the day, saline gel before bed, and abortive Afrin. Patient will follow-up as needed or go to the emergency room with severe episodes. [email or web address] Not available 03/05/2025 15:21:13 03/12/2025 03/12/2025 Nasal examinatio n demonstrated mild right telangiectasia on anterior septum. This is much improved since prior visit 1 week ago. Recommend continuing medical management with saline nasal spray 4-6 times daily, saline gel at night, Afrin with episodes of bleeding, and packing the nose with Bleed Cease (available OTC) if any additional bleeding. Patient may use Ponaris Nasal Emollient 1/2 dropper twice daily as needed with dryness. Return to office as needed or go to emergency room with severe episodes. Patient agrees to hold off on using intranasal fluticasone until her epistaxis is under control for a couple weeks. [email or web address] Not available 03/12/2025 17:22:33 Plan of Treatment Reminders Order Date Submit Date Provider Last Modified By Organization Details Last Modified Time Details Appointments None record ed. Lab None record ed. Referral None record ed. Procedures None record ed. Surgeries None record ed. Imaging None record ed. Medication Orders None record ed. Patient TargetsNo targets recorded. Patient InstructionsNo instructions recorded. Reason for Referral None Reported. Problems Name Problem SNOMED Code Status Onset Date Resolution Date Notes Provider Name and Address Organization Details Recorded Time Anterior epistaxis 096503260 Active 2024 MARK ANTHONY NEGRETE MD [address], [address], [place] - [facility] 15:07:54 Essential hypertension 76730867 Active 2024 MARK ANTHONY NEGRETE MD [address] [place] [address],[address], [address], [place] - [facility] 15:07:57 Problem Notes None recorded. Procedures Surgical History Date Name Laterality Status Provider Name and Address Organization Details Recorded Time 03/02/20 25 Epistaxis Simple Nasal Cautery Right completed MARK ANTHONY NEGRETE MD [address] [facility],[address], [address], [place] - [facility] 03/02/2025 15:07:49 total replacement of hip completed MARK ANTHONY NEGRETE MD [address] [facility],[address], [address], [place] - [facility] 03/02/2025 17:14:44 carotid endarterectomy completed MARK ANTHONY NEGRETE MD [address] [facility],[address], [address], [place] - [facility] 03/02/2025 17:14:56 lobectomy of lung completed MARK ANTHONY NEGRETE MD [address] [facility] [address], [place], [address], [place] - [facility] 03/02/2025 17:15:08 Imaging Results None recorded. Procedure Notes None recorded. Medical Equipment None Reported. Allergies Allergen ID Allergen Name Allergen Category Reaction Reaction Severity Criticality Documentation Date Start Date Code Code System Note Provider Name and Address Organization Details Recorded Time 100709 Product containin g penicilli n (product) medicatio n Not available Not available Not available 03/02/2025 85010 8001 SNFABRICIO zamudio [place] [facility] 14:16:46 [id number] Dilaudid medicatio n Not available Not available Not available 03/02/2025 10151 3 RxNorm Ludivina zamudio [place] [facility] 14:17:00 500234 Substance with sulfonami de structure and antibacte rial mechanism of action (substanc e) medicatio n Not available Not available Not available 03/02/2025 52796 8003 SNFABRICIO zamudio [place] [facility] 14:17:08 184175 midazolam hydrochlo ride medicatio n Not available Not available Not available 03/02/2025 21019 8 RxNorm Ludivina zamudio [place] [facility] 14:17:30 Medications Name Sig Start Date Stop Date Status Note LastModified by Organization Details LastModified Time prednisone 20 mg tablet TAKE 1 TABLET BY MOUTH DAILY FOR 4 DAYS 03/02 completed Not Available Not Available Not Available amlodipine 5 mg tablet TAKE 1 TABLET BY MOUTH EVERY DAY FOR 30 DAYS active Not Available Not Available No t Available bisoprolol fumarate 5 mg tablet TAKE 1/2 TABLET BY MOUTH DAILY FOR 30 DAYS 03/02 completed Not Available Not Available Not Available estradiol 0.01% (0.1 mg/gram) vaginal cream INSERT 1 GM VAGINALLY DAILY AT BEDTIME 03/02 completed Not Available Not Available Not Available albuterol sulfate HFA 90 mcg/actuati on aerosol inhaler INHALE 2 PUFFS BY MOUTH EVERY 4 TO 6 HOURS NEEDED FOR SHORTNESS OF BREATH OR WHEEZING 03/02 completed Not Available Not Available Not Available metoprolol tartrate 25 mg tablet TAKE 1/2 TABLET BY MOUTH 2 TIMES A DAY FOR 90 DAYS active Not Available Not Available No t Available Vitals Date Recorded Body height Body mass index (BMI) Body weight Provider Name and Address Organization Details Last Updated DateTime 03/02/2025 167.64 cm 20.2 kg/m2 79081.05 g Ludivina Jacob [place] [facility] 03/02/2025 14:16:36 Date Recorded Body height Body mass index (BMI) Body weight Provider Name and Address Organization Details Last Updated DateTime 03/05/2025 167.64 cm 19.4 kg/m2 37564.08 g Mary Noe [place] [facility] 03/05/2025 13:55:02 Date Recorded Body height Body mass index (BMI) Body weight Provider Name and Address Organization Details Last Updated DateTime 03/12/2025 167.64 cm 19.4 kg/m2 35472.08 g Mary Noe [place] [facility] 03/12/2025 13:05:54 Social History None recorded. Functional Status None recorded. Mental Status None recorded. Family History Nothing Reported. Medical History Condition Response Cancer Arthritis Y Stroke Y Hypertension Y Gynecological HistoryNo gynecological history recorded. Obstetrics History GPAL:G 0 P 0 0 0 0 Past Encounters Encounter ID Performer Location Encounter Start Date Encounter Closed Date Diagnosis/Indication Diagnosis SNOMED-CT Code Diagnosis ICD10 Code Diagnosis Note [id number] MARK ANTHONY NEGRETE MD [facility] [address] [address] 03/02/2025 13:57:46 03/03/2025 08:38:41 Anterior epistaxis 040699897 R04.0 Essential hypertension 64560843 I10 [id number] BARBARA MENDOZA PA-C [facility] [address] [address] 03/05/2025 13:40:00 03/05/2025 14:14:42 Essential hypertension 11498234 I10 Anterior epistaxis 21918 4002 R04.0 [id number] BARBARA MENDOZA PA-C [facility] [address] [place] [address] 03/12/2025 12:54:37 03/12/2025 13:32:14 Anterior epistaxis 133705031 R04.0 Health Concerns Section Related Observation LastModified by Organization Detai ls LastModified Time None Recorded Concern Status LastModified by Organization Details LastModified Time None Recorded Advance Directives Directive None Recorded Payers Insurance Date Sequence Insurance Name Policy Number Policy Cooper Covered Member ID Cooper Member ID Guarantor Name 03/12/2025 1 [employer] [id number] Tika Ramos [id number] Tika Ramos Notes Date Note Type Note Provider Name and Address Organization Details Recorded Time 03/02/2025 text/html 84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 She underwent nasal cautery [address] Negrete. She reports daily nasal bleeding since. She trialed preventative saline and abortive Afrin, with minimal improvement. She is not actively bleeding now. 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 She underwent nasal cautery on 03/02, and Surgicel was placed 03/05. She continues to experience nasal bleeding every couple days. Her most recent nosebleed was 2 days ago. The bleeding quickly stopped with intranasal Afrin and holding anterior pressure. Patient would like to know if she can restart her allergy medication, cetirizine and fluticasone. MARK ANTHONY NEGRETE MD [address] [place] [address], [phone], [facility] - [facility] 03/13/2025 07:51:33 OBGyn Episode No OBEpisode recorded.
[2025-04-23 12:24] VITALS: BP 190/80
== END 2025-04-23 14:07 | disposition home or self-care (01) ==
LOC: HO.HMCFM 11:12
PROVIDERS: PCP Family Medicine; Visit Provider Family Medicine
DX: I10 Essential (primary) hypertension (principal); G45.9 Transient cerebral ischemic attack, unspecified; R21 Rash and other nonspecific skin eruption; M79.89 Other specified soft tissue disorders

== ENCOUNTER → 2025-04-23 11:11 | Outpatient (BNVA) | payer MEDICARE, SELFPAY | PROVIDERS: PCP Family Medicine; Visit Provider Family Medicine | DX: I10 Essential (primary) hypertension (principal); R21 Rash and other nonspecific skin eruption; M79.89 Other specified soft tissue disorders; Z86.73 Personal history of transient ischemic attack (TIA), and cerebral infarction without residual deficits | CPT/HCPCS: 99212 ==